=== PATIENT | male | born 1975 | race Asian ===

== ENCOUNTER 2020-08-10 09:09 | Outpatient (REF) | payer OTHER, SELFPAY ==
[2020-08-10 11:18] LABS: MANUAL DIFF FLAG NO
[2020-08-10 11:28] LABS: Basophils Percent Auto 0.3 % (0-2); Eosinophils Absolute Auto 0.3 X10*3/uL (0.0-0.4); Eosinophils Percent Auto 4.3 % (0-4); Hematocrit 41.6 % (42-52); Imm Gran Abs Auto 0.01 X10*3/uL (0.00-0.03); Imm Gran Pct Auto 0.1 % (0.0-0.4); Lymphocytes Absolute Auto 1.7 X10*3/uL (1.2-4.9); Lymphocytes Percent Auto 25.3 % (20-40); Mean Corpuscular HGB Conc 31.3 g/dl (31.0-36.0); Mean Corpuscular Volume 96.1 fL (80-98); Mean Platelet Volume 11.4 fL (9.4-12.4); Monocytes Absolute Auto 0.8 X10*3/uL (0.1-1.2); Monocytes Percent Auto 12.2 % (2-11); Neutrophils Absolute Auto 3.9 X10*3/uL (2.0-8.3); Neutrophils Percent Auto 57.8 % (45-73); Platelet Count 207 X10*3/uL (160-400); Red Blood Count 4.33 X10*6/uL (4.60-5.80); Red Cell Distribution Width 12.2 % (11.0-16.0); White Blood Count 6.8 X10*3/uL (4.8-10.8)
[2020-08-10 11:54] LABS: Anion Gap 12 (12-20); Blood Urea Nitrogen 14 mg/dL (9-16); Calcium 8.7 mg/dL (8.4-10.2); Carbon Dioxide 25 mmol/L (22-29); Chloride 108 mmol/L (96-108); Cholesterol 127 mg/dL; Estimated Glomerular Filt Rate > 60; Glucose Fasting 86 mg/dL (60-99); HDL Cholesterol 33 mg/dL; Iron 102 mcg/dL (45-160); LDL Cholesterol Calculated 82 mg/dl; Percent Iron Saturation 32 % (15-50); Potassium 4.2 mmol/l (3.3-5.1); Sodium 141 mmol/L (135-145); Total Iron Binding Capacity 321 mcg/dL (228-428); Triglycerides 63 mg/dL; Unsaturated Iron Binding 219 ug/dL
[2020-08-10 12:19] LABS: Ferritin 218 ng/mL (20-250)
== END 2020-08-10 09:10 | disposition home or self-care (01) ==
LOC: HO.HMGCLDS 09:09
PROVIDERS: PCP Internal Medicine; Visit Provider Internal Medicine
DX: D64.9 Anemia, unspecified (principal); Z00.01 Encounter for general adult medical examination with abnormal findings; I10 Essential (primary) hypertension; D50.9 Iron deficiency anemia, unspecified; R43.0 Anosmia
CPT/HCPCS: 36415; 80048; 80061; 82728; 83540; 85025; U0003

== ENCOUNTER 2021-01-09 09:38 | Outpatient (REF) | payer OTHER, SELFPAY ==
[2021-01-09 11:22] LABS: MANUAL DIFF FLAG NO
[2021-01-09 11:31] LABS: Basophils Percent Auto 0.3 % (0-2); Eosinophils Absolute Auto 0.2 X10*3/uL (0.0-0.4); Eosinophils Percent Auto 3.6 % (0-4); Hematocrit 43.1 % (42-52); Hemoglobin 13.6 g/dl (14.0-18.0); Imm Gran Abs Auto 0.01 X10*3/uL (0.00-0.03); Imm Gran Pct Auto 0.2 % (0.0-0.4); Lymphocytes Absolute Auto 1.6 X10*3/uL (1.2-4.9); Lymphocytes Percent Auto 25.6 % (20-40); Mean Corpuscular HGB Conc 31.6 g/dl (31.0-36.0); Mean Corpuscular Volume 95.1 fL (80-98); Mean Platelet Volume 10.7 fL (9.4-12.4); Monocytes Absolute Auto 0.6 X10*3/uL (0.1-1.2); Monocytes Percent Auto 9.7 % (2-11); Neutrophils Absolute Auto 3.7 X10*3/uL (2.0-8.3); Neutrophils Percent Auto 60.6 % (45-73); Platelet Count 287 X10*3/uL (160-400); Red Blood Count 4.53 X10*6/uL (4.60-5.80); Red Cell Distribution Width 12.1 % (11.0-16.0); White Blood Count 6.1 X10*3/uL (4.8-10.8)
[2021-01-09 12:04] LABS: Alanine Aminotransferase 16 U/L (0-40); Albumin Level 4.2 g/dL (3.5-5.0); Alkaline Phosphatase 86 U/L (39-117); Anion Gap 13 (12-20); Aspartate Amino Transferase 15 U/L (5-37); Blood Urea Nitrogen 14 mg/dL (9-16); Carbon Dioxide 23 mmol/L (22-29); Chloride 108 mmol/L (96-108); Estimated Glomerular Filt Rate > 60; Glucose Random 102 mg/dL (60-115); Potassium 4.3 mmol/L (3.3-5.1); Sodium 140 mmol/L (135-145); Total Protein 7.9 g/dL (6.5-8.0)
== END 2021-01-09 09:39 | disposition home or self-care (01) ==
LOC: HO.HMGCLDS 09:38
PROVIDERS: PCP Internal Medicine; Visit Provider Nurse Practitioner Family
DX: R10.9 Unspecified abdominal pain (principal)
CPT/HCPCS: 36415; 80053; 85025

== ENCOUNTER 2021-02-01 09:22 | Outpatient (REF) | payer OTHER, SELFPAY ==
--- NOTE | ~2021-02-01 | US_ITS ---
EXAMINATION: US ABDOMEN COMPLETE CLINICAL INFORMATION: Right upper quadrant pain. COMPARISON: CT abdomen without intravenous contrast dated 10/26/2007. TECHNIQUE: Real-time imaging of the abdominal viscera. FINDINGS: PANCREAS: Not visualized due to bowel gas. ABDOMINAL AORTA: The proximal, mid, and distal segments are normal in caliber. INFERIOR VENA CAVA: Visualized portions are normal. LIVER: Liver echotexture is increased and heterogeneous. The liver is normal in size. The liver contour is normal. No focal hepatic lesion. There is no intrahepatic biliary duct dilatation seen. GALLBLADDER: Normal. The gallbladder is physiologically distended without evidence of stones, sludge, polyps, wall thickening or pericholecystic fluid. COMMON BILE DUCT: Normal in caliber measuring 0.3 cm in diameter. RIGHT KIDNEY: Normal. No hydronephrosis. No renal calculi or focal parenchymal lesions. The kidney measures 11.1 cm in maximum dimension. LEFT KIDNEY: There is a 3 mm stone in the lower pole. No hydronephrosis or focal parenchymal lesions. The kidney measures 11.1 cm in maximum dimension. SPLEEN: Normal. The spleen measures 8.7 cm in maximum dimension. FREE FLUID: None. US/US abdomen complete IMPRESSION: Increased heterogeneous liver echotexture probably representing fatty infiltration. Small left renal stone. Nonvisualization of the pancreas.
== END 2021-02-01 09:23 | disposition home or self-care (01) ==
LOC: HO.US 09:22
PROVIDERS: PCP Internal Medicine; Visit Provider Internal Medicine
DX: R10.11 Right upper quadrant pain (principal)
CPT/HCPCS: 76700

== ENCOUNTER 2021-05-24 14:06 | Outpatient (REF) | payer OTHER, SELFPAY ==
--- NOTE | ~2021-05-24 | XR_ITS ---
EXAMINATION: XR RIBS, RIGHT CLINICAL INFORMATION: Pleura dynamic COMPARISON: None TECHNIQUE: 3 views of the right ribs were obtained. One view chest. FINDINGS: Lungs are clear. No consolidation, pneumothorax, or pleural effusion. The cardiomediastinal silhouette and pulmonary vasculature are normal. No bony abnormality seen. Multiple views of right ribs reveal no visible fracture or bony abnormality. A marker has been placed along the right lower posterior ribs with no visible fracture seen XR/XR ribs RT min 3V w CXR1V IMPRESSION: Unremarkable chest exam. Unremarkable right rib series.
== END 2021-05-24 14:07 | disposition home or self-care (01) ==
LOC: HO.HMGCX 14:06
PROVIDERS: PCP Internal Medicine; Visit Provider Internal Medicine
DX: Z13.89 Encounter for screening for other disorder (principal)
CPT/HCPCS: 71101

== ENCOUNTER 2021-08-11 09:12 | Outpatient (REF) | payer OTHER, SELFPAY ==
[2021-08-11 11:36] LABS: MANUAL DIFF FLAG NO
[2021-08-11 11:42] LABS: Basophils Percent Auto 0.2 % (0-2); Eosinophils Absolute Auto 0.2 X10*3/uL (0.0-0.4); Hematocrit 42.2 % (42.0-52.0); Hemoglobin 13.1 g/dl (14.0-18.0); Imm Gran Abs Auto 0.02 X10*3/uL (0.00-0.03); Imm Gran Pct Auto 0.3 % (0.0-0.4); Lymphocytes Absolute Auto 1.4 X10*3/uL (1.2-4.9); Lymphocytes Percent Auto 23.4 % (20-40); Mean Corpuscular Hemoglobin 30.3 pg (27.0-33.0); Mean Corpuscular Volume 97.5 fL (80.0-98.0); Monocytes Absolute Auto 0.7 X10*3/uL (0.1-1.2); Monocytes Percent Auto 11.8 % (2-11); Neutrophils Absolute Auto 3.5 x10*3/uL (2.0-8.3); Neutrophils Percent Auto 60.3 % (45-73); Platelet Count 270 X10*3/uL (160-400); Red Blood Count 4.33 X10*6/uL (4.60-5.80); Red Cell Distribution Width 11.9 % (11.0-16.0); White Blood Count 5.8 X10*3/uL (4.8-10.8)
[2021-08-11 12:08] LABS: Alanine Aminotransferase 15 U/L (0-40); Alkaline Phosphatase 98 U/L (39-117); Anion Gap 10 (12-20); Aspartate Amino Transferase 15 U/L (5-37); Bilirubin Total 1.3 mg/dL (0.0-1.0); Blood Urea Nitrogen 17 mg/dL (9-16); Calcium 9.2 mg/dL (8.4-10.2); Carbon Dioxide 26 mmol/L (22-29); Chloride 105 mmol/L (96-108); Cholesterol 127 mg/dL; Estimated Glomerular Filt Rate > 60; Glucose Fasting 81 mg/dL (60-99); HDL Cholesterol 34 mg/dL; Iron 92 mcg/dL (45-160); LDL Cholesterol Calculated 77 mg/dl; Percent Iron Saturation 28 % (15-50); Potassium 4.4 mmol/L (3.3-5.1); Sodium 137 mmol/L (135-145); Total Iron Binding Capacity 327 mcg/dL (228-428); Total Protein 7.5 g/dL (6.5-8.0); Triglycerides 84 mg/dL; Unsaturated Iron Binding 235 ug/dL
== END 2021-08-11 09:13 | disposition home or self-care (01) ==
LOC: HO.HMGCLDS 09:12
PROVIDERS: PCP Internal Medicine; Visit Provider Internal Medicine
DX: Z00.01 Encounter for general adult medical examination with abnormal findings (principal); R10.11 Right upper quadrant pain; D64.9 Anemia, unspecified
CPT/HCPCS: 36415; 80053; 80061; 83540; 85025

== ENCOUNTER 2021-09-21 08:02 | Outpatient (REF) | payer OTHER, SELFPAY ==
[2021-09-21 09:23] LABS: MANUAL DIFF FLAG NO
[2021-09-21 09:50] LABS: Basophils Percent Auto 0.3 % (0-2); Eosinophils Absolute Auto 0.2 X10*3/uL (0.0-0.4); Eosinophils Percent Auto 3.6 % (0-4); Hematocrit 42.7 % (42.0-52.0); Hemoglobin 13.5 g/dl (14.0-18.0); Imm Gran Abs Auto 0.01 X10*3/uL (0.00-0.03); Imm Gran Pct Auto 0.2 % (0.0-0.4); Lymphocytes Absolute Auto 1.4 X10*3/uL (1.2-4.9); Lymphocytes Percent Auto 24.4 % (20-40); Mean Corpuscular HGB Conc 31.6 g/dl (31.0-36.0); Mean Corpuscular Hemoglobin 30.4 pg (27.0-33.0); Mean Corpuscular Volume 96.2 fL (80.0-98.0); Mean Platelet Volume 10.1 fL (9.4-12.4); Monocytes Absolute Auto 0.6 X10*3/uL (0.1-1.2); Monocytes Percent Auto 10.3 % (2-11); Neutrophils Absolute Auto 3.6 x10*3/uL (2.0-8.3); Neutrophils Percent Auto 61.2 % (45-73); Platelet Count 251 X10*3/uL (160-400); Red Blood Count 4.44 X10*6/uL (4.60-5.80); Red Cell Distribution Width 11.7 % (11.0-16.0); White Blood Count 5.8 X10*3/uL (4.8-10.8)
[2021-09-21 10:30] LABS: Alanine Aminotransferase 17 U/L (0-40); Alkaline Phosphatase 90 U/L (39-117); Anion Gap 11 (12-20); Aspartate Amino Transferase 14 U/L (5-37); Bilirubin Direct 0.5 mg/dL (0.0-0.5); Bilirubin Total 1.2 mg/dL (0.0-1.0); Blood Urea Nitrogen 12 mg/dL (9-16); Calcium 9.3 mg/dL (8.4-10.2); Carbon Dioxide 25 mmol/L (22-29); Chloride 108 mmol/L (96-108); Estimated Glomerular Filt Rate > 60; Gamma Glutamyl Transpeptidase 23 U/L (11-51); Glucose Random 87 mg/dL (60-115); Potassium 4.2 mmol/L (3.3-5.1); Sodium 140 mmol/L (135-145); Total Protein 7.6 g/dL (6.5-8.0)
[2021-09-21 10:49] LABS: HBS Num1 27.76 mIU/mL (0-7.99); HBsAGNum1 0.26 S/CO (0.00-0.99); Hepatitis A Antibody IgM 0.49 Index (0-0.79); Hepatitis B Surface Antigen Negative (Negative); ~Hepatitis A Antibody IgM Nonreactive (Nonreactive); ~Hepatitis B Surface Antibody REACTIVE (Nonreactive)
[2021-09-21 10:50] LABS: HIV AB/AG Nonreactive (Nonreactive); HIV Num 1 0.05 S/CO (0.00-0.99); ~HepC Num1 0.12 S/CO (0.00-0.79); ~Hepatitis C Antibody Nonreactive (Nonreactive)
[2021-09-21 10:53] LABS: Ferritin 169 ng/mL (20-250)
[2021-09-21 12:25] LABS: HBc Num3 8.54 S/CO; Hepatitis B Core Antibody Reactive (Nonreactive)
[2021-09-24 22:55] LABS: Anti Nuclear Antibody Pattern Nuclear, Homogeneous; Anti Nuclear Antibody Screen POSITIVE (NEGATIVE); Anti Nuclear Antibody Titer 1:40 titer
[2021-09-26 15:55] LABS: Mitochondrial Antibodies NEGATIVE (NEGATIVE)
[2021-09-26 23:11] LABS: Smooth Muscle Antibody <20 U (<20)
== END 2021-09-21 08:03 | disposition home or self-care (01) ==
LOC: HO.LAB 08:02
PROVIDERS: PCP Internal Medicine; Referring Provider Internal Medicine; Visit Provider Nurse Practitioner
DX: R79.89 Other specified abnormal findings of blood chemistry (principal); Z12.11 Encounter for screening for malignant neoplasm of colon
CPT/HCPCS: 36415; 80053; 82105; 82248; 82728; 82977; 85025; 86015; 86038; 86039; 86255; 86256; 86704; 86706; 86709; 86803; 87340; 87389; 99202

== ENCOUNTER 2022-01-29 11:17 | Day surgery (SDC) | payer OTHER, SELFPAY ==
[2022-01-23 15:30] VITALS: BMI 23.6
--- NOTE | 2022-01-28 11:00 | P.CONAN_ITS ---
Documented by User: Alisa Ochoa NP 02/05/22 13:42 HPI - Anesthesia Eval Consult details Narrative: 46yo M for Colonoscopy [facility] Active Problems Active Problems: All Active Problems (Updated 01/23/22 @ 15:27 by Janis Cobb RN) Eczematous dermatitis (Acute) Encounter for screening for malignant neoplasm of colon (Acute) Elevated LFTs (Acute) Seasonal allergic rhinitis (Acute) Deviated nasal septum (Acute) Anosmia (Acute) Anemia (Acute) Kidney stones (Acute) Past Medical History Medical History Acute dermatitis Anemia Anosmia COVID-19 vaccine series completed Deviated nasal septum Fatty liver Kidney stones Right upper quadrant abdominal pain Seasonal allergic rhinitis Family History Family History Father Diabetes mellitus Mother Kidney failure Sister No problems noted. Sister No problems noted. Sister No problems noted. Son No problems noted. Daughter No problems noted. Daughter No problems noted. Brother No problems noted. Brother No problems noted. Brother No problems noted. Brother No problems noted. Brother No problems noted. Surgical History Surgical History Nasal fracture Social History Social History Housing: House Alcohol intake: never Patient Tobacco Use Status: Never used Tobacco Current occupational status: employed Meds Allergies Allergy/AdvReac Type Severity Reaction Status Date / Time No Known Allergies [NKA] Allergy Unknown UNKNOWN Verified 01/29/22 12:02 Exam Exam Date and Time: January 28, 2022 1100 Height,Weight and Vital Signs: Height 5 ft 8 in Weight 70.477 kg Assessment and Plan Assessment Anesthesia Assessment: Chart Reviewed Documented by User: Riccardo Ruiz MD 02/05/22 14:47 [facility] Past Medical History Medical History Acute dermatitis Anemia Anosmia COVID-19 vaccine series completed Deviated nasal septum Fatty liver Kidney stones Right upper quadrant abdominal pain Seasonal allergic rhinitis Family History Family History Father Diabetes mellitus Mother Kidney failure Sister No problems noted. Sister No problems noted. Sister No problems noted. Son No problems noted. Daughter No problems noted. Daughter No problems noted. Brother No problems noted. Brother No problems noted. Brother No problems noted. Brother No problems noted. Brother No problems noted. Family history of problems with anesthesia: No Surgical History Surgical History Nasal fracture History of Problems with Anesthesia: No Social History Social History Housing: House Alcohol intake: never Patient Tobacco Use Status: Never used Tobacco Current occupational status: employed Meds Allergies Allergy/AdvReac Type Severity Reaction Status Date / Time No Known Allergies [NKA] Allergy Unknown UNKNOWN Verified 01/29/22 12:02 Exam Airway Mallampati Class: I TM Dist: >3cm Neck ROM: Full Assessment and Plan Assessment Anesthesia Assessment: Anesthesia Plan Discussed Final Anesthetic Review Family History of Problems with Anesthesia: No History of Problems with Anesthesia: No NPO: Yes ASA Class: II Final Preanesthetic Review: No Changes in Pt Med Stat, Meds/Allgs Chart Reviewed, Consent Obtained/Reviewed and Anes Risks/Benef Reviewed Patient Risk: Low Procedure Risk: Low Anesthetic Plan Anesthetic Plan: MAC: Disposition: Standard PACU
[2022-01-29 11:48] VITALS: BP 142/84; PULSE 63; RESP 15; TEMP 36.3; O2SAT 99
[2022-01-29] MEDS: Lactated Ringers 1,000 ML 100 ML IVCONT (12:02)
--- NOTE | 2022-01-29 12:14 | MHC.SHP ---
Pre-Procedural Eval Section A Date of Service: 01/29/22 Section B Chief Complaint: screening Relevant Family History (Specify if Yes): No Relevant Social History: None Medical History: Significant History (Acute dermatitis Anemia Anosmia COVID-19 vaccine series completed Deviated nasal septum Kidney stones Right upper quadrant abdominal pain Seasonal allergic rhinitis) History of Previous Operations: Relevant previous surgery/procedure and date(s) (Nasal fracture) Allergies: Allergies Allergy/AdvReac Type Severity Reaction Status Date / Time No Known Allergies [NKA] Allergy Unknown UNKNOWN Verified 01/29/22 12:02 Review of Systems Sugical H&P ROS: Negative: Constitution, Cardiovascular, Respiratory, Neurological, Psychiatric, Hem-Onc, Allergic/Immunologic, Gastrointestinal, Genitourinary, Musculoskeletal, Integumentary, Endocrine and Eyes/Ears/Nose/Throat Exam Surgical H&P Exam: Normal: HEENT, Normal: Heart, Normal: Lungs, Normal: Extremities, Normal: Abdomen, Normal: Skin and Normal: Neurological Plan Diagnosis/Plan: Unchanged I have reviewed the history and physical and performed a pertinent physical examination on my patient. No changes have occurred unless specified.
--- NOTE | 2022-01-29 12:22 | P.OP_ITS ---
Operative Note Operative Note Date of Service: 01/29/22 Narrative: Operative Information Procedure Description: Colonoscopy Indication: screening colonoscopy Anesthesia: MAC COLONOSCOPY Instrument: Olympus variable stiffness ADULT scope 190L Colonoscopy Monitoring: Vital signs and clinical assessment, continuous EKG monitoring, Pulse oximetry, Carbon Dioxide monitoring and blood pressure monitoring were done throughout the procedure. Colon withdrawal time was 8 minutes. Procedure: The patient was placed in the left lateral decubitis position and pre-procedure medications were administered. After a digital rectal examination of the ano-rectum, the video colonoscope was inserted into the rectum and advanced through the colon to the cecum/TI. The colonoscope was slowly withdrawn in a retrograde panoramic fashion and the colon mucosa was carefully examined including a retroflexed view of the rectum. Findings and interventions are described below. Procedure Difficulty: easy Findings: Terminal Ileum-normal Cecum:normal Ascending Colon: normal Transverse Colon -normal Descending Colon:normal Sigmoid Colon: normal Rectum: Retroflexion with medium sized internal hemorrhoids, grade I Anorectum - normal Colon preparation: [place] Bowel Preparation Scale Right colon; 3 Transverse colon: 3 Left colon; 3 (0 = Unprepared colon segment with mucosa not seen due to solid stool that cannot be cleared. 1 = Portion of mucosa of the colon segment seen, but other areas of the colon segment not well seen due to staining, residual stool and/or opaque liquid. 2 = Minor amount of residual staining, small fragments of stool and/or opaque liquid, but mucosa of colon segment seen well. 3 = Entire mucosa of colon segment seen well with no residual staining, small fragments of stool or opaque liquid) Impression and Post Procedure Diagnosis: internal hemorrhoids Plan: High fiber diet leaflet Avoid straining at stool, epsom salts and sitz bath, anusol supps or cream Repeat Colonoscopy in 10 years or earlier if clinically indicated Above findings were reviewed with the patient and relevant handouts were provided if indicated.
--- NOTE | 2022-01-29 12:22 | PM.OP ---
Brief Operative Note Date of Service: 01/29/22 Pre-op diagnosis: screening colonoscopy Post-op diagnosis: same Procedure: see op note Surgeon: Carolina Londono MD Anesthesia: MAC Was an Clean Out Driller Helper used for this Procedure?: No Estimated blood loss (mL): 0 Condition: stable Disposition: PACU
[2022-01-29 12:55] VITALS: BP 100/53; PULSE 61; TEMP 36.5; O2SAT 97
[2022-01-29 13:12] VITALS: BP 100/56; PULSE 60; RESP 16; TEMP 36.5; O2SAT 99
== END 2022-01-29 12:44 | disposition home or self-care (01) ==
PROVIDERS: PCP Internal Medicine; Visit Provider Internal Medicine Gastroenterology
PROC: 0DJD8ZZ Inspection of Lower Intestinal Tract, Via Natural or Artificial Opening Endoscopic (ICD-10-PCS; CPT 45378; principal; 2022-01-29 13:40)
DX: Z12.11 Encounter for screening for malignant neoplasm of colon (principal); K64.0 First degree hemorrhoids; R79.89 Other specified abnormal findings of blood chemistry; K76.0 Fatty (change of) liver, not elsewhere classified; D64.9 Anemia, unspecified; R43.0 Anosmia; N20.0 Calculus of kidney; L30.9 Dermatitis, unspecified; J30.9 Allergic rhinitis, unspecified
CPT/HCPCS: 45378

== ENCOUNTER → 2022-02-14 10:11 | Outpatient (BNVA) | payer OTHER, SELFPAY | PROVIDERS: PCP Internal Medicine; Visit Provider Nurse Practitioner | DX: Z12.11 Encounter for screening for malignant neoplasm of colon (principal); E80.4 Gilbert syndrome | CPT/HCPCS: 99212 ==

== ENCOUNTER 2022-04-02 11:53 | Outpatient (REF) | payer OTHER, SELFPAY ==
--- NOTE | ~2022-04-02 | XR_ITS ---
EXAMINATION: XR FOOT RIGHT XR FOOT LEFT CLINICAL INFORMATION: Pain of right foot. Left foot plantar fascial fibromatosis. COMPARISON: None TECHNIQUE: Left foot, 3 views Right foot, 3 views FINDINGS: Right foot: No acute findings. Bones have normal alignment and joint spaces are maintained. No erosions or periostitis. No fracture, subluxation or focal soft tissue swelling. There are enthesophytes of the posterior and plantar surfaces of the calcaneus. There is no dystrophic calcification along the plantar aponeurosis. No radiopaque foreign body. Left foot: No acute findings. Bones have normal alignment and joint spaces are maintained. No erosions or periostitis. No fracture, subluxation or focal soft tissue swelling. There are enthesophytes of the posterior and plantar surfaces of the calcaneus. There is no dystrophic calcification along the plantar aponeurosis. No radiopaque foreign body. XR/XR foot RT min 3V IMPRESSION: * Bilateral calcaneal enthesophytes are noted. * The soft tissues of both feet are grossly unremarkable. * No evidence of metatarsal stress fracture or arthritic disease in either foot.
--- NOTE | ~2022-04-02 | XR_ITS ---
EXAMINATION: XR FOOT RIGHT XR FOOT LEFT CLINICAL INFORMATION: Pain of right foot. Left foot plantar fascial fibromatosis. COMPARISON: None TECHNIQUE: Left foot, 3 views Right foot, 3 views FINDINGS: Right foot: No acute findings. Bones have normal alignment and joint spaces are maintained. No erosions or periostitis. No fracture, subluxation or focal soft tissue swelling. There are enthesophytes of the posterior and plantar surfaces of the calcaneus. There is no dystrophic calcification along the plantar aponeurosis. No radiopaque foreign body. Left foot: No acute findings. Bones have normal alignment and joint spaces are maintained. No erosions or periostitis. No fracture, subluxation or focal soft tissue swelling. There are enthesophytes of the posterior and plantar surfaces of the calcaneus. There is no dystrophic calcification along the plantar aponeurosis. No radiopaque foreign body. XR/XR foot LT min 3V IMPRESSION: * Bilateral calcaneal enthesophytes are noted. * The soft tissues of both feet are grossly unremarkable. * No evidence of metatarsal stress fracture or arthritic disease in either foot.
== END 2022-04-02 11:54 | disposition home or self-care (01) ==
LOC: HO.HMGCX 11:53
PROVIDERS: Visit Provider Physician Assistant
DX: M79.671 Pain in right foot (principal); M79.672 Pain in left foot; M72.2 Plantar fascial fibromatosis
CPT/HCPCS: 73630

== ENCOUNTER 2022-05-10 12:01 | Outpatient (REF) | payer OTHER, SELFPAY ==
[2022-05-10 13:58] LABS: Hematocrit 40.6 % (42.0-52.0); Hemoglobin 13.3 g/dl (14.0-18.0); Mean Corpuscular HGB Conc 32.8 g/dl (31.0-36.0); Mean Corpuscular Hemoglobin 30.6 pg (27.0-33.0); Mean Corpuscular Volume 93.3 fL (80.0-98.0); Mean Platelet Volume 10.1 fL (9.4-12.4); Platelet Count 247 X10*3/uL (160-400); Red Blood Count 4.35 X10*6/uL (4.60-5.80); Red Cell Distribution Width 12.3 % (11.0-16.0); White Blood Count 6.9 X10*3/uL (4.8-10.8)
[2022-05-10 14:16] LABS: Alanine Aminotransferase 18 U/L (0-40); Alkaline Phosphatase 85 U/L (39-117); Anion Gap 14 (12-20); Aspartate Amino Transferase 15 U/L (5-37); Bilirubin Direct 0.4 mg/dL (0.0-0.5); Bilirubin Total 1.2 mg/dL (0.0-1.0); Blood Urea Nitrogen 15 mg/dL (9-16); Calcium 9.3 mg/dL (8.4-10.2); Carbon Dioxide 25 mmol/L (22-29); Chloride 104 mmol/L (96-108); Estimated Average Glucose 82 mg/dL; Estimated Glomerular Filt Rate > 60; Glucose Random 89 mg/dL (60-115); Hemoglobin A1c % 4.5 %; Potassium 4.2 mmol/L (3.3-5.1); Sodium 139 mmol/L (135-145); Total Protein 7.6 g/dL (6.5-8.0)
[2022-05-10 14:38] LABS: Thyroid Stimulating Hormone 1.36 uIU/mL (0.32-4.0)
== END 2022-05-10 12:02 | disposition home or self-care (01) ==
LOC: HO.HMGCLDS 12:01
PROVIDERS: PCP Internal Medicine; Visit Provider Internal Medicine
DX: G62.9 Polyneuropathy, unspecified (principal)
CPT/HCPCS: 36415; 80048; 80076; 83036; 84443; 85027

== ENCOUNTER 2022-07-30 10:23 | Outpatient (REF) | payer OTHER, SELFPAY ==
[2022-07-30 11:45] LABS: MANUAL DIFF FLAG NO
[2022-07-30 12:04] LABS: Basophils Percent Auto 0.7 % (0-2); Eosinophils Absolute Auto 0.2 X10*3/uL (0.0-0.4); Eosinophils Percent Auto 4.1 % (0-4); Hemoglobin 14.1 g/dl (14.0-18.0); Imm Gran Abs Auto 0.01 X10*3/uL (0.00-0.03); Imm Gran Pct Auto 0.2 % (0.0-0.4); Lymphocytes Absolute Auto 1.5 X10*3/uL (1.2-4.9); Lymphocytes Percent Auto 26.1 % (20-40); Mean Corpuscular Hemoglobin 30.6 pg (27.0-33.0); Mean Corpuscular Volume 95.4 fL (80.0-98.0); Mean Platelet Volume 10.9 fL (9.4-12.4); Monocytes Absolute Auto 0.6 X10*3/uL (0.1-1.2); Monocytes Percent Auto 11.1 % (2-11); Neutrophils Absolute Auto 3.2 x10*3/uL (2.0-8.3); Neutrophils Percent Auto 57.8 % (45-73); Platelet Count 249 X10*3/uL (160-400); Red Blood Count 4.61 X10*6/uL (4.60-5.80); Red Cell Distribution Width 11.8 % (11.0-16.0); White Blood Count 5.6 X10*3/uL (4.8-10.8)
[2022-07-30 12:32] LABS: Erythrocyte Sedimentation Rate 12 MM/HR (0-15)
[2022-07-30 13:07] LABS: Anion Gap 14 (12-20); Blood Urea Nitrogen 13 mg/dL (9-16); Calcium 9.3 mg/dL (8.4-10.2); Carbon Dioxide 24 mmol/L (22-29); Chloride 107 mmol/L (96-108); Estimated Glomerular Filt Rate > 60; Glucose Random 85 mg/dL (60-115); Potassium 4.4 mmol/L (3.3-5.1); Sodium 141 mmol/L (135-145)
[2022-08-01 15:37] LABS: CRP High Sensitivity 2.2 mg/L
== END 2022-07-30 10:24 | disposition home or self-care (01) ==
LOC: HO.HMGCLDS 10:23
PROVIDERS: PCP Internal Medicine; Visit Provider Physician Assistant
DX: R42 Dizziness and giddiness (principal)
CPT/HCPCS: 36415; 80048; 85025; 85652; 86141

== ENCOUNTER 2022-08-12 10:35 | Outpatient (REF) | payer OTHER, SELFPAY ==
[2022-08-12 12:15] LABS: Alanine Aminotransferase 17 U/L (0-40); Albumin Level 4.1 g/dL (3.5-5.0); Alkaline Phosphatase 85 U/L (39-117); Aspartate Amino Transferase 13 U/L (5-37); Bilirubin Direct 0.4 mg/dL (0.0-0.5); Bilirubin Total 1.4 mg/dL (0.0-1.0); Cholesterol 137 mg/dL; HDL Cholesterol 35 mg/dL; LDL Cholesterol Calculated 86 mg/dl; Total Protein 7.5 g/dL (6.5-8.0); Triglycerides 80 mg/dL
== END 2022-08-12 10:36 | disposition home or self-care (01) ==
LOC: HO.HMGCLDS 10:35
PROVIDERS: PCP Internal Medicine; Visit Provider Internal Medicine
DX: Z00.01 Encounter for general adult medical examination with abnormal findings (principal); R17 Unspecified jaundice
CPT/HCPCS: 36415; 80061; 80076

== ENCOUNTER 2023-03-15 22:36 | Emergency (ER) | payer OTHER, SELFPAY ==
[2023-03-15 22:43] VITALS: BP 140/90; PULSE 81; RESP 18; TEMP 36.7; O2SAT 98; BMI 25.7
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
--- NOTE | 2023-03-16 00:17 | PC.NURSE ---
no apparent distress aox4
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
[2023-03-16 00:46] VITALS: BP 138/88; PULSE 70; RESP 18; TEMP 36.8; O2SAT 100
--- NOTE | 2023-03-16 00:58 | PC.NURSE ---
Discharge instructions given and explained to pt Ambulates safely/independently No apparent distress aox4 all of pt's questions answered
--- NOTE | 2023-03-16 00:58 | PC.NURSE ---
pt refused 600 mg ibuprofen states his provider does not want him to take ibuprofen d/t kidney issues
== END 2023-03-16 01:13 | disposition home or self-care (01) ==
PROVIDERS: Emergency Provider Internal Medicine; PCP Internal Medicine
DX: S39.012A Strain of muscle, fascia and tendon of lower back, initial encounter (principal); S16.1XXA Strain of muscle, fascia and tendon at neck level, initial encounter; V43.61XA Car passenger injured in collision with sport utility vehicle in traffic accident, initial encounter; Y93.89 Activity, other specified; Y92.414 Local residential or business street as the place of occurrence of the external cause; Y99.9 Unspecified external cause status
CPT/HCPCS: 99283; 99284

== ENCOUNTER 2023-03-21 10:59 | Outpatient (AMB) | payer OTHER, SELFPAY ==
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
[2023-03-21 11:03] VITALS: BP 120/80; PULSE 82; TEMP 36.5; O2SAT 98
== END 2023-03-21 12:18 | disposition home or self-care (01) ==
PROVIDERS: PCP Internal Medicine; Visit Provider Physician Assistant Medical
DX: M54.12 Radiculopathy, cervical region (principal); M54.16 Radiculopathy, lumbar region
CPT/HCPCS: 99213

== ENCOUNTER 2023-03-21 11:35 | Outpatient (REF) | payer OTHER, SELFPAY ==
[2023-03-21 15:20] LABS: Blood Urea Nitrogen 14 mg/dL (9-16); Estimated Glomerular Filt Rate > 60
== END 2023-03-21 11:36 | disposition home or self-care (01) ==
LOC: HO.HMGCLDS 11:35
PROVIDERS: PCP Internal Medicine; Visit Provider Physician Assistant Medical
DX: Z00.00 Encounter for general adult medical examination without abnormal findings (principal)
CPT/HCPCS: 36415; 82565; 84520

== ENCOUNTER 2023-03-24 10:28 | Outpatient (REF) | payer OTHER, SELFPAY ==
--- NOTE | ~2023-03-24 | XR_ITS ---
EXAMINATION: XR LUMBOSACRAL SPINE CLINICAL INFORMATION: Radiculopathy, lumbar region COMPARISON: None available. TECHNIQUE: Three views of the lumbosacral spine. FINDINGS: The vertebral bodies and posterior elements are normal. The disc spaces are preserved and the vertebral alignment is normal. The paraspinal soft tissues are normal. XR/XR lumbar spine 2-3V IMPRESSION: Unremarkable examination.
--- NOTE | ~2023-03-24 | XR_ITS ---
EXAMINATION: XR CERVICAL SPINE CLINICAL INFORMATION: Radiculopathy, cervical region COMPARISON: None available. TECHNIQUE: 3 views of the cervical spine were obtained. FINDINGS: Vertebral body heights are preserved. There is mild bony spurring in degenerative disc disease in the cervical spine is at C5-C6 and C6-C7. Lateral masses are symmetric. Prevertebral soft tissues are unremarkable. XR/XR cervical spine 3V IMPRESSION: Mild cervical spondylosis at C5-C6 and C6-C7.
== END 2023-03-24 10:29 | disposition home or self-care (01) ==
LOC: HO.XRAY 10:28
PROVIDERS: PCP Internal Medicine; Visit Provider Physician Assistant
DX: M54.12 Radiculopathy, cervical region (principal); M54.16 Radiculopathy, lumbar region
CPT/HCPCS: 72040; 72100

== ENCOUNTER 2023-04-16 10:29 | Outpatient (AMB) | payer OTHER, SELFPAY ==
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
[2023-04-16 10:45] VITALS: BP 112/70; PULSE 69; O2SAT 98; BMI 26.1
== END 2023-04-16 11:09 | disposition home or self-care (01) ==
PROVIDERS: PCP Internal Medicine; Visit Provider Internal Medicine
DX: M54.2 Cervicalgia (principal)
CPT/HCPCS: 99213

== ENCOUNTER 2023-05-21 11:00 | Outpatient (RCR) | payer OTHER, SELFPAY ==
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
--- NOTE | 2023-05-21 11:55 | MHC.PT.DC ---
[facility] [place] Office [place] Office [place] Office [address] Manuel Mendoza [address] [phone] F: [phone] F: [phone] F: [phone] F: [phone] Physical Therapy Discharge Report Diagnosis: cervical radiculopathy, lumbar radiculopathy Date of Surgery: n/a Date of Evaluation: 04/10/23 Date of Discharge: 05/21/23 Treatments to Date: 9 Cancellations to Date: 2 No Shows to Date: 0 Discharge Status: Improved Function Independent with HEP Discharge Summary: 05/21/2023: Pt is reporting feeling better overall since start of care. His pain levels are much lower than when he started. He states he is compliant with his HEP. Encouraged him to continue with this to continue making gains. His lower back is also feeling better. At this point max benefits of PT have been provided and skilled PT is no longer indicated at this time. Pt to be d/c and is in agreement with this. He understands to follow up if his pain is not getting better with continuing his program for a few months. Electronically signed by: Khloe Cadet, PT, DPT, ATC Please sign and return to therapist. Thank you for your referral.
== END 2023-05-21 11:55 | disposition home or self-care (01) ==
LOC: HO.PTCHIC 11:00
PROVIDERS: PCP Internal Medicine; Visit Provider Internal Medicine
DX: M54.12 Radiculopathy, cervical region (principal); M54.16 Radiculopathy, lumbar region
CPT/HCPCS: 97110; 97140; 97161

== ENCOUNTER 2023-07-23 10:37 | Outpatient (AMB) | payer OTHER, SELFPAY ==
[2023-07-23 11:06] VITALS: BP 126/78; PULSE 78; O2SAT 99; BMI 25.8
--- NOTE | 2023-07-23 11:06 | A.OFFPC_ITS ---
Vital Signs 07/23/23 11:06 Height 5 ft 8 in Weight 169 lb 6 oz BMI 25.8 BP 126/78 Blood Pressure Location Lt brachial Position Sitting Pulse 78 Pulse Source Pulse Oximeter Pulse Oximetry (%) 99 Oxygen Delivery Method Room Air Intake Visit Reasons: R foot pain Intake Note: pt is here for pain in his right foot that he has had for a month he denies injury pt says he feels burning to pt says he is using an ointment from [facility] but dose not know the name of it Allergies No Known Allergies [NKA] Allergy (Unknown, Verified 07/23/23 11:25) UNKNOWN Medication List - Last Reconciled 07/23/23 by Lanny Rivers MD No Known Home Meds Tobacco use date assessed: 04/16/23 HPI R foot pain HPI Details 28-year-old male, here today complaining of progressive pain in the plantar aspect of his right foot, which has been present now for the last several weeks. He states that pain is present 1st thing in the morning when he takes his 1st step out of bed.. He has been taking [id number] Tylenol, and has been massaging his foot, which affords no improvement. He is here today requesting a referral to a foot doctor COUNT INCLUDES [facility] Medical History (Updated 08/04/23 @ 02:58 by Lanny Rivers MD) Pain, foot, chronic Cervicalgia Recurrent headache Intermittent lightheadedness Fatty liver COVID-19 vaccine series completed Right upper quadrant abdominal pain Seasonal allergic rhinitis Deviated nasal septum Anosmia Anemia Acute dermatitis Kidney stones Surgical History Nasal fracture Family History Father Diabetes mellitus Mother Kidney failure Sister No problems noted. Sister No problems noted. Sister No problems noted. Son No problems noted. Daughter No problems noted. Daughter No problems noted. Brother No problems noted. Brother No problems noted. Brother No problems noted. Brother No problems noted. Brother No problems noted. Housing: House Alcohol intake: never Patient Tobacco Use Status: Never used Tobacco e-Cigarette/Vaping Use: Never Used Current occupational status: employed Cognitive needs: No Hearing needs: No Vision needs: Yes Questionnaire PHQ-9 Over the last 2 weeks, how often have you been bothered by any of the following problems? Depression Screening Interpretation: Negative Depression Screening Done: Yes Source: Developed by Drs. Dae King, Enid Peña, Andre Murphy and colleagues, with an educational magan from [employer]. Thrive Questionnaire Date Thrive assessed: 04/16/23 SALINA-7 AMB Questionnaire SALINA-7 Date SALINA - 7 assessed: 04/16/23 Source: Developed by Drs. Dae King, Enid Peña, Andre Murphy and colleagues, with an educational magan from [employer]. Review of Systems Const All systems reviewed & are unremarkable except as noted in HPI and below Neuro Denies Sensory deficit (Neuro) Physical exam (Primary Care) Vital Signs: Last Vital Signs Pulse 78 07/23/23 11:06 BP 126/78 07/23/23 11:06 Pulse Ox 99 07/23/23 11:06 Oxygen Delivery Method Room Air 07/23/23 11:06 BMI result Body Mass Index 25.8 Tobacco/Smoking Status: Tobacco use Status Tobacco use date assessed 04/16/23 07/23/23 11:09 Patient Tobacco Use Status Never used Tobacco 07/23/23 11:09 e-Cigarette/Vaping Use Never Used 07/23/23 11:09 Depression Screening Interpretation: Negative Thrive Assessment: Date of Thrive Assessment Date Thrive assessed 04/16/23 07/23/23 11:09 Const General: no acute distress and alert Orientation/consciousness: patient oriented x3 Neck Neck: Yes full ROM and Yes no lymphadenopathy Resp Effort & Inspection: normal respiratory effort and able to speak in complete sentences Auscultation: clear to auscultation bilaterally Cardio Jugular venous distension: no JVD Rate: regular rate Rhythm: regular rhythm Heart sounds: S1 normal heart sound present and S2 normal heart sound present GI Inspection: Yes normal to inspection Palpation (GI): Soft to palpation Auscultation: normal bowel sounds Skin General skin exam: no rashes or lesions noted Neuro General: patient oriented x3, gait normal, moves all extremities, no focal motor deficits and CN's II-XI intact bilaterally Gait exam (Neuro): Normal gait present Motor exam (neuro): 5/5 motor strength present throughout Sensory Exam: No Sensory deficit (Neuro) Extrem General: Yes normal to inspection, Yes full ROM, Yes no pedal edema and Yes normal gait Right lower extremity: no joint enlargement and foot Details: tenderness (Plantar aspect and heel) Assessment and Plan Assessment & Plan (1) Pain, foot, chronic: Code(s): M79.673 - Pain in unspecified foot; G89.29 - Other chronic pain Qualifiers: Laterality: right Qualified Code(s): M79.671 - Pain in right foot; G89.29 - Other chronic pain Plan: Symptoms most likely due to plantar fascitis, instructed on several exercises to do at home , advised to wear comfortable shoes with good heel support. Referral to podiatry ordered as per patient's request. Orders: Referrals Podiatry Referral M79.673 - Pain in unspecified foot, G89.29 - Other chronic pain Coding Level of Care Code Est Pt Level 3 (98560) Diagnoses Chronic pain in right foot M79.671; G89.29 Laterality: right
== END 2023-07-23 11:35 | disposition home or self-care (01) ==
PROVIDERS: PCP Internal Medicine; Visit Provider Internal Medicine
DX: M79.671 Pain in right foot (principal); G89.29 Other chronic pain
CPT/HCPCS: 99213

== ENCOUNTER 2023-08-14 09:57 | Outpatient (AMB) | payer OTHER, SELFPAY ==
--- NOTE | 2023-08-14 10:05 | A.OFFPC_ITS ---
Vital Signs 08/14/23 10:06 Height 5 ft 8 in Weight 170 lb 4 oz BMI 25.9 BP 118/72 Blood Pressure Location Rt brachial Position Sitting Pulse 72 Pulse Source Pulse Oximeter Pulse Oximetry (%) 99 Oxygen Delivery Method Room Air Intake Visit Reasons: Annual PE Intake Note: Pt is here for his Annual PE Allergies No Known Allergies [NKA] Allergy (Unknown, Verified 08/14/23 10:52) UNKNOWN Medication List - Last Reconciled 08/14/23 by Lanny Rivers MD No Known Home Meds Tobacco use date assessed: 08/14/23 Dental Screening Dental Screen Date: 08/14/23 Did you have a dental visit in the last 12 months?: Yes Did you have a dental problem in the last 6 months where you did not have access to dental care?: No Was dental information given to patient?: Patient has dentist HPI Annual PE HPI Details 48-year-old male here today for his phy sical exam. On review of his vaccination record, he is overdue to get his COVID booster, patient does not want to get it, and has not yet had his flu vaccine for this year. Up-to-date with his Tdap. He had screening colonoscopy done in January of [address] Londono, showing normal findings, repeat in 10 years. He was referred to a product safety consultant in [place] on last visit, due to possible plantar fascitis. Patient has been complaining of bilateral heel pain and plantar pain when he takes his 1st step in the morning. He however received a letter from them saying that they do not take his insurance and now has to find another product safety consultant. He was recently seen by Neurology for possible migraine headaches and was advised to just take [id number] Excedrin migraine. Has been doing this which has been helping. [facility] Medical History (Updated 10/06/23 @ 02:21 by Lanny Rivers MD) Migraine without aura Pain, foot, chronic Cervicalgia Recurrent headache Intermittent lightheadedness Fatty liver COVID-19 vaccine series completed Right upper quadrant abdominal pain Seasonal allergic rhinitis Deviated nasal septum Anosmia Anemia Acute dermatitis Kidney stones Surgical History Nasal fracture Family History Father Diabetes mellitus Mother Kidney failure Sister No problems noted. Sister No problems noted. Sister No problems noted. Son No problems noted. Daughter No problems noted. Daughter No problems noted. Brother No problems noted. Brother No problems noted. Brother No problems noted. Brother No problems noted. Brother No problems noted. Social History Housing: House Alcohol intake: never Patient Tobacco Use Status: Never used Tobacco e-Cigarette/Vaping Use: Never Used Current occupational status: employed Cognitive needs: No Hearing needs: No Vision needs: Yes Questionnaire PHQ-9 Over the last 2 weeks, how often have you been bothered by any of the following problems? Depression Screening Interpretation: Negative Depression Screening Done: Yes Source: Developed by Drs. Dae King, Enid Peña, Andre Murphy and colleagues, with an educational magan from [employer]. Thrive Questionnaire Date Thrive assessed: 04/16/23 SALINA-7 AMB Questionnaire SALINA-7 Date SALINA - 7 assessed: 04/16/23 Source: Developed by Drs. Dae King, Enid Peña, Andre Murphy and colleagues, with an educational magan from [employer]. Review of Systems Const All systems reviewed & are unremarkable except as noted in HPI and below Denies chills and Denies fever(s) Eyes Reports no additional complaints ENT Reports no additional complaints and Reports Normal hearing present Card Reports no additional complaints, Denies chest pain and Denies dyspnea Resp Reports no additional complaints and Denies dyspnea GI Reports as per HPI and Denies fecal incontinence Reports as per HPI and Denies urinary incontinence Musc Reports as per HPI and Denies tingling Skin/Breast Denies rash Neuro Reports no additional complaints, Reports Normal hearing present, Denies lack of coordination, Denies focal weakness, Denies Sensory deficit (Neuro), Denies tingling and Denies paresthesias Psych Reports no additional complaints Endo Reports no additional complaints Oliver/Lymph Reports no additional complaints Aller/Immun Reports no additional complaints Physical exam (Primary Care) Vital Signs: Last Vital Signs Pulse 72 08/14/23 10:06 BP 118/72 08/14/23 10:06 Pulse Ox 99 08/14/23 10:06 Oxygen Delivery Method Room Air 08/14/23 10:06 BMI result Body Mass Index 25.9 Tobacco/Smoking Status: Tobacco use Status Tobacco use date assessed 08/14/23 08/14/23 10:13 Patient Tobacco Use Status Never used Tobacco 08/14/23 10:07 e-Cigarette/Vaping Use Never Used 08/14/23 10:07 Depression Screening Interpretation: Negative Thrive Assessment: Date of Thrive Assessment Date Thrive assessed 04/16/23 08/14/23 10:07 Const General: no acute distress and alert Orientation/consciousness: patient oriented x3 Eyes Other: Up-to-date with his eye exam goes to [facility] every 2 year, last done a year ago Neck Neck: Yes full ROM and Yes no lymphadenopathy Resp Effort & Inspection: normal respiratory effort and able to speak in complete sentences Auscultation: clear to auscultation bilaterally Cardio Jugular venous distension: no JVD Rate: regular rate Rhythm: regular rhythm Heart sounds: S1 normal heart sound present and S2 normal heart sound present GI Inspection: Yes normal to inspection Palpation (GI): Soft to palpation Auscultation: normal bowel sounds General: Yes no CVA tenderness Male General Exam: Yes normal external exam Back/Spine/Pelvis Back: no CVA tenderness Skin General skin exam: no rashes or lesions noted Neuro General: patient oriented x3, gait normal, moves all extremities, no focal motor deficits and CN's II-XI intact bilaterally Cranial nerves: Yes Normal hearing present Gait exam (Neuro): Normal gait present Motor exam (neuro): 5/5 motor strength present throughout Sensory Exam: No Sensory deficit (Neuro) Extrem General: Yes normal to inspection, Yes full ROM, Yes no pedal edema and Yes normal gait Right lower extremity: no joint enlargement and foot Details: tenderness (Plantar aspect and heel) Psych Appearance: grossly normal and well kempt Mental Status: mental status grossly normal Speech and movement: Normal speech and movement present Affect: normal affect Attitude: cooperative Thought process: Normal thought process present Thought content: Normal thought content present Office Procedures Flu Questionnaire Does the patient have a severe egg allergy?: No Does the patient have severe life threatening allergies?: No Does the patient have a fever or illness today?: No Has the patient ever had Guillain-Delmar Syndrome?: No Has the patient ever had any past reaction to a flu shot?: No Immunizations flu vacc [id number] 6mos up(PF) 60 mcg(15 mcgx4)/0.5 mL IM syringe Performing Provider: Lanny Rivers MD Performing Location: [facility] Administered by: Stefania Crandall CMA on 08/14/23 11:14 Dose Route Admin Location Dispensed Lot Number Expiration Date NDC Ur Coordinator 0.5 mL IM Left Deltoid 0.5 mL [id number] 03/07/24 62489-605-72 [employer] VIS Given Date VIS Provided VIS Publication Date 08/14/23 Single Vaccine 21 Eligibility Eligibility Date Funding Source Not [facility] Eligible 08/14/23 Private Assessment and Plan Assessment & Plan (1) Annual visit for general adult medical examination with abnormal findings: Code(s): Z00.01 - Encounter for general adult medical examination with abnormal findings Plan: Will check appropriate labs. Get regular dental visit every 6 months and regular eye exams, at least every 2 years. Take adequate calcium in diet and vitamin-D 3 at 2000 IU per cap once a day, in addition to weight-bearing exercises to help maintain good muscle tone and weight control. Instructed to self testicular exam to check for any mass. Flu vaccine given today. Up-to-date with his screening colonoscopy (2) Migraine without aura: Comment: Seen by Neurology, Dr. 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, Z00.01 - Encounter for general adult medical examination with abnormal findings, Z13.220 - Encounter for screening for lipoid disorders, Z13.1 - Encounter for screening for diabetes mellitus Lipid Panel 08/20/23 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, Z00.01 - Encounter for general adult medical examination with abnormal findings, Z13.220 - Encounter for screening for lipoid disorders, Z13.1 - Encounter for screening for diabetes mellitus Glucose Fasting 08/20/23 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, Z00.01 - Encounter for general adult medical examination with abnormal findings, Z13.220 - Encounter for screening for lipoid disorders, Z13.1 - Encounter for screening for diabetes mellitus Aspartate Amino Transferase 08/20/23 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, Z00.01 - Encounter for general adult medical examination with abnormal findings, Z13.220 - Encounter for screening for lipoid disorders, Z13.1 - Encounter for screening for diabetes mellitus Influenza [id number] Immunization 08/14/23 Z23 - Encounter for immunization Coding Level of Care Code Est Pt Prev Care 40-64y(35606) Diagnoses Annual visit for general adult medical examination with abnormal findings Z00.01 Migraine without aura and without status migrainosus, not intractable G43.009 Status migrainosus presence: without status migrainosus Intractability: not intractable [place] syndrome E80.4
[2023-08-14 10:06] VITALS: BP 118/72; PULSE 72; O2SAT 99; BMI 25.9
== END 2023-08-14 11:25 | disposition home or self-care (01) ==
PROVIDERS: PCP Internal Medicine; Visit Provider Internal Medicine
DX: Z23 Encounter for immunization (principal)
CPT/HCPCS: 90471; 90686; 99396

== ENCOUNTER 2023-08-20 08:11 | Outpatient (REF) | payer OTHER, SELFPAY ==
[2023-08-20 11:37] LABS: Alanine Aminotransferase 21 U/L (0-40); Aspartate Amino Transferase 19 U/L (5-37); Cholesterol 144 mg/dL (<200); Glucose Fasting 92 mg/dL (60-99); HDL Cholesterol 40 mg/dL (>40); LDL Cholesterol Calculated 86 mg/dL (<100); Triglycerides 94 mg/dL (<150)
== END 2023-08-20 08:12 | disposition home or self-care (01) ==
LOC: HO.HMGCLDS 08:11
PROVIDERS: PCP Internal Medicine; Visit Provider Internal Medicine
DX: Z00.01 Encounter for general adult medical examination with abnormal findings (principal); E80.4 Gilbert syndrome; Z13.220 Encounter for screening for lipoid disorders; Z13.1 Encounter for screening for diabetes mellitus
CPT/HCPCS: 36415; 80061; 82947; 84450; 84460

== ENCOUNTER 2024-08-17 09:33 | Outpatient (AMB) | payer OTHER, SELFPAY ==
[2024-08-17 10:11] VITALS: BP 100/70; PULSE 68; O2SAT 98; BMI 25.5
--- NOTE | 2024-08-17 10:11 | MHC.PC.OV ---
Vital Signs 08/17/24 10:11 Height 5 ft 8 in Weight 168 lb BMI 25.5 BP 100/70 Blood Pressure Location Rt brachial Position Sitting Pulse 68 Pulse Source Pulse Oximeter Pulse Oximetry (%) 98 Oxygen Delivery Method Room Air Intake Visit Reasons: Annual PE- see comments Intake Note: Pt is here today for his PE: Last colonoscopy 01/29/22 Allergies No Known Allergies [NKA] Allergy (Unknown, Verified 08/17/24 10:42) UNKNOWN Medication List - Last Reconciled 08/17/24 by Lanny Rivers MD No Known Home Meds Tobacco use date assessed: 08/17/24 Dental Screening Dental Screen Date: 08/17/24 Did you have a dental visit in the last 12 months?: Yes Did you have a dental problem in the last 6 months where you did not have access to dental care?: No Was dental information given to patient?: Patient has dentist [facility] Medical History (Updated 08/17/24 @ 10:51 by Lanny Rivers MD) Migraine without aura Pain, foot, chronic Cervicalgia Recurrent headache Intermittent lightheadedness Fatty liver COVID-19 vaccine series completed Right upper quadrant abdominal pain Seasonal allergic rhinitis Deviated nasal septum Anosmia Anemia Acute dermatitis Kidney stones Surgical History Nasal fracture Family History Father Diabetes mellitus Mother Kidney failure Sister No problems noted. Sister No problems noted. Sister No problems noted. Son No problems noted. Daughter No problems noted. Daughter No problems noted. Brother No problems noted. Brother No problems noted. Brother No problems noted. Brother No problems noted. Brother No problems noted. Social History Housing: House Alcohol intake: never Patient Tobacco Use Status: Never used Tobacco e-Cigarette/Vaping Use: Never Used Current occupational status: employed Cognitive needs: No Hearing needs: No Vision needs: Yes Questionnaire PHQ-9 Over the last 2 weeks, how often have you been bothered by any of the following problems? 1. Little interest or pleasure in doing things: not at all 2. Feeling down, depressed, or hopeless: not at all 3. Trouble falling or staying asleep, or sleeping too much: not at all 4. Feeling tired or having little energy: not at all 5. Poor appetite or overeating: not at all 6. Feeling bad about yourself - or that you are a failure or have let yourself or your family down: not at all 7. Trouble concentrating on things, such as reading the newspaper or watching television: not at all 8. Moving or speaking so slowly that other people could have noticed. Or the opposite - being so fidgety or restless that you have been moving around a lot more than usual: not at all 9. Thoughts that you would be better off or of hurting yourself in some way: not at all Total score: 0 Source: Developed by Drs. Dae King, Enid Peña, Andre Murphy and colleagues, with an educational magan from [employer]. Thrive Questionnaire Date Thrive assessed: 08/10/24 I am a: Patient What is your living situation today?: I have a steady place to live Within the past 12 months, did the food you bought not last and you didn't have the money to get more?: Often true Within the past 12 months, did you worry whether your food would run out before you got money to buy more?: Never true Do you have trouble paying for medicines?: No Do you have trouble getting transportation to medical appointments?: No Do you have trouble paying your heating and electricity bill?: I choose not to answer this question Do you have trouble taking care of your child, family member or friend?: I choose not to answer this question Do you have trouble with day-to-day activities such as bathing, preparing meals, shopping, managing finances, etc.?: No Are you currently unemployed and looking for a job?: No Are you interested in more education?: No Please select the resources that you would like help with: None Currently or been in a relationship where the following occur: No concerns reported THRIVE Score: 1 AUDIT C Alcohol Use Questionnaire (AUDIT-C) 1. How often do you have a drink containing alcohol?: Never 3. How often do you have six or more drinks on one occasion?: Never Total Score: 0 SALINA-7 AMB Questionnaire SALINA-7 Date SALINA - 7 assessed: 04/16/23 Feeling nervous, anxious, or on edge: 0 = Not at all Not being able to stop or control worryin = Not at all Worrying too much about different things: 0 = Not at all Trouble relaxin = Not at all Being so restless that it is hard to sit still: 0 = Not at all Becoming easily annoyed or irritable: 0 = Not at all Feeling afraid as if something awful might happen: 0 = Not at all Total SALINA-7 score (0-4 normal; 5-9 mild; 10-14 moderate; 15-21 severe): 0 Source: Developed by Drs. Dae King, Enid Peña, Andre Murphy and colleagues, with an educational magan from [employer]. Physical exam (Primary Care) Vital Signs: Last Vital Signs Pulse 68 08/17/24 10:11 BP 100/70 08/17/24 10:11 Pulse Ox 98 08/17/24 10:11 Oxygen Delivery Method Room Air 08/17/24 10:11 BMI result Body Mass Index 25.5 Tobacco/Smoking Status: Tobacco use Status Tobacco use date assessed 08/17/24 08/17/24 10:12 Patient Tobacco Use Status Never used Tobacco 08/17/24 10:12 e-Cigarette/Vaping Use Never Used 08/17/24 10:12 PHQ-9: PHQ-9 Score PHQ-9: Total score 0 08/17/24 10:51 Thrive Assessment: Date of Thrive Assessment Date Thrive assessed 08/10/24 08/17/24 10:12 Currently or been in a relationship where the following occur: No concerns reported Office Procedures Flu Questionnaire Does the patient have a severe egg allergy?: No Does the patient have severe life threatening allergies?: No Does the patient have a fever or illness today?: No Has the patient ever had Guillain-Almond Syndrome?: No Has the patient ever had any past reaction to a flu shot?: No Immunizations Fluarix Triv [id number] (PF) 45 mcg (15 mcg x 3)/0.5 mL IM syringe Performing Provider: Lanny Rivers MD Performing Location: [facility] Administered by: Luz Maria Thrasher CMA on 08/17/24 11:17 Dose Route Admin Location Dispensed Lot Number Expiration Date NDC Residential Property Manager 0.5 mL IM Right Deltoid 0.5 mL [id number] 03/07/25 [id number] [employer] VIS Given Date VIS Provided VIS Publication Date 08/17/24 Single Vaccine 21 Eligibility Eligibility Date Funding Source Not [facility] Eligible 08/17/24 Private Coding Diagnoses Annual visit for general adult medical examination with abnormal findings Z00. 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 Category: Medical (3) Advanced directives, counseling/discussion: Code(s): Z71.89 - Other specified counseling (4) Needs flu shot: Code(s): Z23 - Encounter for immunization Orders: Orders Alanine Aminotransferase Today E66.3 - Overweight, 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, Z00.01 - Encounter for general adult medical examination with abnormal findings, Z13.1 - Encounter for screening for diabetes mellitus, Z13.220 - Encounter for screening for lipoid disorders, Z71.89 - Other specified counseling Basic Metabolic Panel Fasting Today E66.3 - Overweight, 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01 - Encounter for general adult medical examination with abnormal findings, Z13.1 - Encounter for screening for diabetes mellitus, Z13.220 - Encounter for screening for lipoid disorders, Z71.89 - Other specified counseling Influenza [id number] Immunization Today Z23 - Encounter for immunization Aspartate Amino Transferase Today E66.3 - Overweight, 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, Z00.01 - Encounter for general adult medical examination with abnormal findings, Z13.1 - Encounter for screening for diabetes mellitus, Z13.220 - Encounter for screening for lipoid disorders, Z71.89 - Other specified counseling Hemoglobin and Hematocrit Today E66.3 - Overweight, 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, Z00.01 - Encounter for general adult medical examination with abnormal findings, Z13.1 - Encounter for screening for diabetes mellitus, Z13.220 - Encounter for screening for lipoid disorders, Z71.89 - Other specified counseling Medications: New Fluarix Triv [id number] (PF) (flu vacc [id number] 6mos up(PF)) 0.5 mL IM ONCE 0.5 mL 0RF NS Z23 - Encounter for immunization
== END 2024-08-17 11:04 | disposition home or self-care (01) ==
PROVIDERS: PCP Internal Medicine; Visit Provider Internal Medicine
DX: Z23 Encounter for immunization (principal)

== ENCOUNTER → 2024-08-17 09:33 | Outpatient (BNVA) | payer OTHER, SELFPAY | PROVIDERS: PCP Internal Medicine; Visit Provider Internal Medicine | DX: Z00.01 Encounter for general adult medical examination with abnormal findings (principal); Z23 Encounter for immunization; E80.4 Gilbert syndrome; Z71.89 Other specified counseling | CPT/HCPCS: 90471; 90656; 96127; 99396; 99497 ==

== ENCOUNTER 2024-08-25 10:58 | Outpatient (REF) | payer OTHER, SELFPAY ==
[2024-08-25 13:36] LABS: Hematocrit 42.3 % (42.0-52.0); Hemoglobin 13.5 g/dl (14.0-18.0)
[2024-08-25 13:49] LABS: Alanine Aminotransferase 18 U/L (0-40); Anion Gap 8 (12-20); Aspartate Amino Transferase 21 U/L (5-37); Blood Urea Nitrogen 16 mg/dL (9-16); Calcium 8.7 mg/dL (8.4-10.2); Carbon Dioxide 26 mmol/L (22-29); Chloride 108 mmol/L (96-108); Cholesterol 131 mg/dL (<200); Estimated Glomerular Filt Rate > 60; Glucose Fasting 91 mg/dL (60-99); HDL Cholesterol 34 mg/dL (>40); LDL Cholesterol Calculated 83 mg/dL (<100); Potassium 4.4 mmol/L (3.3-5.1); Sodium 138 mmol/L (135-145); Triglycerides 73 mg/dL (<150)
[2024-08-25 14:10] LABS: Vitamin D 25-OH Total 26.5 ng/mL (>30)
== END 2024-08-25 10:59 | disposition home or self-care (01) ==
LOC: HO.HMGCLDS 10:58
PROVIDERS: PCP Internal Medicine; Visit Provider Internal Medicine
DX: Z00.01 Encounter for general adult medical examination with abnormal findings (principal); E80.4 Gilbert syndrome; Z71.89 Other specified counseling; E66.3 Overweight; Z13.220 Encounter for screening for lipoid disorders; Z13.1 Encounter for screening for diabetes mellitus
CPT/HCPCS: 36415; 80048; 80061; 82306; 84450; 84460; 85014; 85018

== ENCOUNTER 2024-09-23 08:15 | Outpatient (AMB) | payer OTHER, SELFPAY ==
--- NOTE | 2024-09-23 08:22 | AM.OFFWIN_ITS ---
Intake Vital Signs 3 09/23/24 08:25 Weight 171 lb BP 108/70 Blood Pressure Location Lt brachial Position Sitting Pulse 65 Pulse Source Pulse Oximeter Pulse Oximetry (%) 98 Oxygen Delivery Method Room Air Intake Visit Reasons: EP ?Allergic reaction Intake Note: Patient here for rash all over body that has been present for about 1 week. Patient Tobacco Use Status: Never used Tobacco Allergies No Known Allergies [NKA] Allergy (Unknown, Verified 09/23/24 08:25) UNKNOWN Medication List - Last Reconciled 09/23/24 by Lin Best NP No Known Home Meds Do you need a note to return to daycare/school/sports/work: Yes HPI HPI Comments 2 History of Present Illness0 Details 49 y/o male patient who presents to the walk in clinic with c/o rash all over his body x 1 week. Reports that the rash is very itchy, flaky and dry. Denies any changes to medications, detergents, cosmetics or foods. Denies any fevers, chills, nausea or vomiting. [facility] Medical History (Updated 08/17/24 @ 10:51 by Lanny Rivers MD) Migraine without aura Pain, foot, chronic Cervicalgia Recurrent headache Intermittent lightheadedness Fatty liver COVID-19 vaccine series completed Right upper quadrant abdominal pain Seasonal allergic rhinitis Deviated nasal septum Anosmia Anemia Acute dermatitis Kidney stones Surgical History Nasal fracture Family History Father Diabetes mellitus Mother Kidney failure Sister No problems noted. Sister No problems noted. Sister No problems noted. Son No problems noted. Daughter No problems noted. Daughter No problems noted. Brother No problems noted. Brother No problems noted. Brother No problems noted. Brother No problems noted. Brother No problems noted. Social History Housing: House Alcohol intake: never Patient Tobacco Use Status: Never used Tobacco e-Cigarette/Vaping Use: Never Used Current occupational status: employed Cognitive needs: No Hearing needs: No Vision needs: Yes Review of Systems Const All systems reviewed & are unremarkable except as noted in HPI and below Physical Exam Vital Signs: Last Vital Signs Pulse 65 09/23/24 08:25 BP 108/70 09/23/24 08:25 Pulse Ox 98 09/23/24 08:25 Oxygen Delivery Method Room Air 09/23/24 08:25 Skin Lesions: lesion noted (upper torso, back arms and lower legs. ) Full body images: 2 1. macular papular rash, round raised red lesions. Dry flaky skin. 2. macular papular rash, round raised red lesions. Dry flaky skin. 3. macular papular rash, round raised red lesions. Dry flaky skin. 4. macular papular rash, round raised red lesions. Dry flaky skin. 5. macular papular rash, round raised red lesions. Dry flaky skin. 6. macular papular rash, round raised red lesions. Dry flaky skin. 7. macular papular rash, round raised red lesions. Dry flaky skin. Assessment & Plan Assessment & Plan (1) Rash and nonspecific skin eruption: Code(s): R21 - Rash and other nonspecific skin eruption Plan: Prednisone for few days RTC if not better by Friday. Medications: New 2 cetirizine (Zyrtec) 10 mg PO DAILY 30 tabs 0RF R21 - Rash and other nonspecific skin eruption diphenhydramine HCl (Benadryl) 25 mg PO BEDTIME PRN 30 caps 0RF sleep R21 - Rash and other nonspecific skin eruption prednisone 50 mg PO DAILY 5 tabs 0RF 5 days R21 - Rash and other nonspecific skin eruption triamcinolone acetonide 0.025% 1 appl topical BID 60 mL 1RF R21 - Rash and other nonspecific skin eruption Coding Level of Care Code Est Pt Level 4 (46772) Diagnoses Rash and nonspecific skin eruption R21 Time Spent (min) 20
[2024-09-23 08:25] VITALS: BP 108/70; PULSE 65; O2SAT 98
== END 2024-09-23 09:00 | disposition home or self-care (01) ==
PROVIDERS: PCP Internal Medicine; Visit Provider Nurse Practitioner Family
DX: R21 Rash and other nonspecific skin eruption (principal)

== ENCOUNTER → 2024-09-23 08:15 | Outpatient (BNVA) | payer OTHER, SELFPAY | PROVIDERS: PCP Internal Medicine; Visit Provider Nurse Practitioner Family | DX: R21 Rash and other nonspecific skin eruption (principal) | CPT/HCPCS: 99212 ==

== ENCOUNTER 2024-10-06 08:04 | Outpatient (AMB) | payer OTHER, SELFPAY ==
[2024-10-06 08:07] VITALS: BP 102/80; PULSE 81; O2SAT 98; BMI 24.9
--- NOTE | 2024-10-06 08:07 | A.OFFPC_ITS ---
Vital Signs 10/06/24 08:07 Height 5 ft 8 in Weight 164 lb BMI 24.9 BP 102/80 Blood Pressure Location Rt brachial Position Sitting Pulse 81 Pulse Source Pulse Oximeter Pulse Oximetry (%) 98 Oxygen Delivery Method Room Air Intake Visit Reasons: rash on body Allergies No Known Allergies [NKA] Allergy (Unknown, Verified 10/06/24 08:22) UNKNOWN Medication List - Last Reconciled 10/06/24 by Lanny Rivers MD hydrocortisone 2.5% 1 appl topical BID PRN Tobacco use date assessed: 10/06/24 Dental Screening Dental Screen Date: 08/17/24 HPI rash on body HPI Details 49-year-old male here today for follow-u p on a rash which has started several weeks ago. Initially was seen at the walk-in clinic and prescribed the 5 day course of prednisone and go to take cetirizine as needed. Patient states that rash cleared up temporarily then came back again after stopping prednisone. He was referred to dermatology and was seen at [facility] yesterday. Skin biopsy was done with results still pending. Patient was advised to stop taking Zyrtec and was prescribed hydrocortisone 2.5% cream to apply to the rash on his face which they think is most likely psoriasis . He has an appointment to see them back on 10/19/2024 for removal of stitches and follow-up on biopsy results.. No other family members have same symptoms, they do not have any pet at home nor did he have any recent travel or new foods introduced in his diet. Results of recent fasting labs done a month ago was discussed with patient which showed presence of normal electrolytes, fasting glucose, lipids, but vitamin-D is low. Currently not taking any vitamin D supplements liver enzymes slightly elevated but patient has history of Gilbert's syndrome. [facility] Medical History (Updated 10/06/24 @ 08:41 by Lanny Rivers MD) Vitamin D deficiency Acute dermatitis Migraine without aura Cervicalgia Intermittent lightheadedness Fatty liver COVID-19 vaccine series completed Right upper quadrant abdominal pain Seasonal allergic rhinitis Deviated nasal septum Anosmia Kidney stones Surgical History Nasal fracture Family History Father Diabetes mellitus Mother Kidney failure Sister No problems noted. Sister No problems noted. Sister No problems noted. Son No problems noted. Daughter No problems noted. Daughter No problems noted. Brother No problems noted. Brother No problems noted. Brother No problems noted. Brother No problems noted. Brother No problems noted. Social History Housing: House Alcohol intake: never Patient Tobacco Use Status: Never used Tobacco e-Cigarette/Vaping Use: Never Used Current occupational status: employed Cognitive needs: No Hearing needs: No Vision needs: Yes Questionnaire PHQ-9 Over the last 2 weeks, how often have you been bothered by any of the following problems? 1. Little interest or pleasure in doing things: not at all 2. Feeling down, depressed, or hopeless: not at all 3. Trouble falling or staying asleep, or sleeping too much: not at all 4. Feeling tired or having little energy: not at all 5. Poor appetite or overeating: not at all 6. Feeling bad about yourself - or that you are a failure or have let yourself or your family down: not at all 7. Trouble concentrating on things, such as reading the newspaper or watching television: not at all 8. Moving or speaking so slowly that other people could have noticed. Or the opposite - being so fidgety or restless that you have been moving around a lot more than usual: not at all 9. Thoughts that you would be better off or of hurting yourself in some way: not at all Total score: 0 Depression Screening Interpretation: Negative Depression Screening Done: Yes 83635 - PHQ-9 Billing: Yes Source: Developed by Drs. Dae King, Enid Peña, Andre Murphy and colleagues, with an educational magan from [employer]. Thrive Questionnaire Date Thrive assessed: 10/03/24 I am a: Patient What is your living situation today?: I have a steady place to live Within the past 12 months, did the food you bought not last and you didn't have the money to get more?: I choose not to answer this question Within the past 12 months, did you worry whether your food would run out before you got money to buy more?: Never true Do you have trouble paying for medicines?: No Do you have trouble getting transportation to medical appointments?: I choose not to answer this question Do you have trouble paying your heating and electricity bill?: I choose not to answer this question Do you have trouble taking care of your child, family member or friend?: No Do you have trouble with day-to-day activities such as bathing, preparing meals, shopping, managing finances, etc.?: No Are you currently unemployed and looking for a job?: No Are you interested in more education?: No Please select the resources that you would like help with: None Currently or been in a relationship where the following occur: No concerns reported THRIVE Score: 0 AUDIT C Alcohol Use Questionnaire (AUDIT-C) 1. How often do you have a drink containing alcohol?: Never 3. How often do you have six or more drinks on one occasion?: Never Total Score: 0 SALINA-7 AMB Questionnaire SALINA-7 Date SALINA - 7 assessed: 10/06/24 Feeling nervous, anxious, or on edge: 0 = Not at all Not being able to stop or control worryin = Not at all Worrying too much about different things: 0 = Not at all Trouble relaxin = Not at all Being so restless that it is hard to sit still: 0 = Not at all Becoming easily annoyed or irritable: 0 = Not at all Feeling afraid as if something awful might happen: 0 = Not at all Total SALINA-7 score (0-4 normal; 5-9 mild; 10-14 moderate; 15-21 severe): 0 Source: Developed by Drs. Dae King, Enid Peña, Andre Murphy and colleagues, with an educational magan from [employer]. SALINA-7 Assessment Billing SALINA-7 Assessment Tool: SALINA-7 Assessment 26833 Review of Systems Const All systems reviewed & are unremarkable except as noted in HPI and below Physical exam (Primary Care) Vital Signs: Last Vital Signs Pulse 81 10/06/24 08:07 BP 102/80 10/06/24 08:07 Pulse Ox 98 10/06/24 08:07 Oxygen Delivery Method Room Air 10/06/24 08:07 BMI result Body Mass Index 24.9 Tobacco/Smoking Status: Tobacco use Status Tobacco use date assessed 10/06/24 10/06/24 08:17 Patient Tobacco Use Status Never used Tobacco 10/06/24 08:09 e-Cigarette/Vaping Use Never Used 10/06/24 08:09 Depression Screening Interpretation: Negative Thrive Assessment: Date of Thrive Assessment Date Thrive assessed 10/03/24 10/06/24 08:09 Currently or been in a relationship where the following occur: No concerns reported Const Other: Alert oriented x3, no acute distress noted ambulatory normal gait HENMT Ears: external ears normal General nose exam: Normal external nose present Face and sinus: Yes sinuses nontender and Yes face symmetric Mouth: Normal oral and palatal mucosa present, oropharynx normal and moist mucous membranes Eyes General: appearance normal, both eyes and all related structures Neck Neck: Yes full ROM, Yes no lymphadenopathy and Yes supple Resp Auscultation: clear to auscultation bilaterally Cardio Other: S1-S2 present regular rate and rhythm GI Other: Global bowel sounds, soft nontender with no mass palpated Skin Other: Scattered ; macular rash, scattered on face, neck, trunk, upper and lower extremities sparing palms Extrem General: Yes full ROM, Yes no joint enlargement, Yes no clubbing, cyanosis or edema and Yes normal gait Coding Level of Care Code Est Pt Level 3 (94776) Diagnoses Acute dermatitis L30.9 Vitamin D deficiency E55.9 Additional Codes SALINA-7 Assessment Billing - SALINA-7 Assessment Tool: SALINA-7 Assessment 83796 ([id number]) PHQ-9 - 23303 - PHQ-9 Billing: Yes ([id number]) Assessment & Plan Assessment & Plan (1) Acute dermatitis: Code(s): L30.9 - Dermatitis, unspecified Category: Medical Plan: Patient currently applying hydrocortisone cream 2.5% to rash on face. Advised to use cream sparingly. Keep follow-up appointment with [facility] on 10/19/2024 for removal of stitches in follow-up. (2) Vitamin D deficiency: Code(s): E55.9 - Vitamin D deficiency, unspecified Category: Medical Plan: Advised to start taking [id number] vitamin D3 at 2000 units IU or 50 mcg once a day
== END 2024-10-06 09:07 | disposition home or self-care (01) ==
PROVIDERS: PCP Internal Medicine; Visit Provider Internal Medicine
DX: L30.9 Dermatitis, unspecified (principal); E55.9 Vitamin D deficiency, unspecified

== ENCOUNTER → 2024-10-06 08:04 | Outpatient (BNVA) | payer OTHER, SELFPAY | PROVIDERS: PCP Internal Medicine; Visit Provider Internal Medicine | DX: L30.9 Dermatitis, unspecified (principal); E55.9 Vitamin D deficiency, unspecified | CPT/HCPCS: 96127; 99212 ==

== ENCOUNTER 2024-11-03 11:08 | Outpatient (AMB) | payer OTHER, SELFPAY ==
[2024-11-03 11:43] VITALS: BP 140/80; PULSE 75; O2SAT 98; BMI 24.9
--- NOTE | 2024-11-03 11:43 | AM.OFFWIN_ITS ---
Intake Vital Signs 11/03/24 11:43 Height 5 ft 8 in Weight 164 lb BMI 24.9 BP 140/80 H Blood Pressure Location Lt brachial Position Sitting Pulse 75 Pulse Source Pulse Oximeter Pulse Oximetry (%) 98 Oxygen Delivery Method Room Air Intake Visit Reasons: EP High BP 145/120 headache Intake Note: Patient here for elevated BP that has been present for about 2 weeks. Patient Tobacco Use Status: Never used Tobacco Allergies No Known Allergies [NKA] Allergy (Unknown, Verified 11/03/24 11:45) UNKNOWN Do you need a note to return to daycare/school/sports/work: No HPI HPI Comments History of Present Illness Details History of Present Illness - The patient is a 49-year-old male pres enting with Elevated blood pressures and headache. - Blood pressure elevation was noted aft er a foam caster visit on October 19, with regular readings since then as high as 172 systolic. - Recent blood pressure measurements ind icate values like 145/112 mm Hg and 144/80 mm Hg, accompanied by headaches and occasional chest pain with the 172 systolic episode. - No associated light headedness, dizzin ess, numbness/tingling in arms, chest pain radiating to the back was reported. - Patient maintains a blood pressure log , confirming consistent elevation. - There is a prior history of kidney sto rebekah, and recent renal function tests were normal. - He has a BP machine at home and his br other is a doctor who is helping check his BP's Physical Exam General: Cooperative, healthy appearing, comfortable, no acute distress and well developed Orientation: Patient oriented x3 Limitations: No limitations Head: Normal to inspection Ears: Hearing grossly normal bilaterally Nose: Normal external nose present Face and sinus: Normal facial exam Eyes: Appearance normal, both eyes and all related structures Neck: Normal visual inspection and Yes full ROM Respiratory: Normal respiratory effort and able to speak in complete sentences. Clear to auscultation bilaterally Cardiovascular: Regular rate and rhythm. Normal S1 and S2 Skin: No rashes or lesions noted Neuro: Patient oriented x3 Extremities: Normal to inspection [facility] Medical History (Updated 11/03/24 @ 12:12 by Gertrude Butts PA-C) Vitamin D deficiency Acute dermatitis Migraine without aura Cervicalgia Intermittent lightheadedness Fatty liver COVID-19 vaccine series completed Right upper quadrant abdominal pain Seasonal allergic rhinitis Deviated nasal septum Anosmia Kidney stones Surgical History Nasal fracture Family History Father Diabetes mellitus Mother Kidney failure Sister No problems noted. Sister No problems noted. Sister No problems noted. Son No problems noted. Daughter No problems noted. Daughter No problems noted. Brother No problems noted. Brother No problems noted. Brother No problems noted. Brother No problems noted. Brother No problems noted. Social History Housing: House Alcohol intake: never Patient Tobacco Use Status: Never used Tobacco e-Cigarette/Vaping Use: Never Used Current occupational status: employed Cognitive needs: No Hearing needs: No Vision needs: Yes Review of Systems Const All systems reviewed & are unremarkable except as noted in HPI and below Physical Exam Vital Signs: Last Vital Signs Pulse 75 11/03/24 11:43 BP 140/80 H 11/03/24 11:43 Pulse Ox 98 11/03/24 11:43 Oxygen Delivery Method Room Air 11/03/24 11:43 BMI result Body Mass Index 24.9 Assessment & Plan Assessment & Plan (1) Hypertension: Code(s): I10 - Essential (primary) hypertension Qualifiers: Hypertension type: unspecified Qualified Code(s): I10 - Essential (primary) hypertension Plan: Plan Initiation of a daily antihypertensive medication at 5 mg is planned, with the patient advised to monitor blood pressure twice daily. Renal function will be evaluated before the follow-up visit, with blood work scheduled for November 15. The patient should meet with a nurse navigator on November 19 for further evaluation and to adjust treatment as required. Treatment goals and expected outcomes were discussed, and the patient was advised on when to withhold medication based on blood pressure readings. Immediate management focuses on stabilizing blood pressure and ensuring kidney safety with new medication. Gave him parameters to call us prior to NN appt such as persistently elevated BPs and persistent headaches and when to not take the medication, BP < 90/60. Patient was informed and verbally consented to the use of an ambient scribe for clinic note documentation during this visit. Orders: Orders Comprehensive Met. Panel 11/15/24 I10 - Essential (primary) hypertension Medications: New lisinopril 5 mg PO DAILY 30 tabs 0RF Coding Level of Care Code Est Pt Level 4 (90330) Diagnoses Hypertension, unspecified type I10 Hypertension type: unspecified
== END 2024-11-03 12:20 | disposition home or self-care (01) ==
PROVIDERS: PCP Internal Medicine; Visit Provider Physician Assistant
DX: I10 Essential (primary) hypertension (principal)

== ENCOUNTER → 2024-11-03 11:08 | Outpatient (BNVA) | payer OTHER, SELFPAY | PROVIDERS: PCP Internal Medicine | DX: I10 Essential (primary) hypertension (principal) | CPT/HCPCS: 99212 ==

== ENCOUNTER 2024-11-15 11:50 | Outpatient (REF) | payer OTHER, SELFPAY ==
[2024-11-15 14:12] LABS: Alanine Aminotransferase 20 U/L (0-40); Albumin Level 3.8 g/dL (3.5-5.0); Alkaline Phosphatase 83 U/L (39-117); Anion Gap 10 (12-20); Aspartate Amino Transferase 15 U/L (5-37); Bilirubin Total 0.8 mg/dL (0.0-1.0); Blood Urea Nitrogen 14 mg/dL (9-16); Calcium 9.2 mg/dL (8.4-10.2); Carbon Dioxide 24 mmol/L (22-29); Chloride 110 mmol/L (96-108); Estimated Glomerular Filt Rate > 60; Glucose Random 93 mg/dL (60-115); Potassium 3.9 mmol/L (3.3-5.1); Sodium 140 mmol/L (135-145); Total Protein 7.5 g/dL (6.5-8.0)
== END 2024-11-15 11:51 | disposition home or self-care (01) ==
LOC: HO.HMGCLDS 11:50
PROVIDERS: PCP Internal Medicine; Visit Provider Physician Assistant
DX: I10 Essential (primary) hypertension (principal)
CPT/HCPCS: 36415; 80053

== ENCOUNTER → 2024-12-03 11:50 | Outpatient (BNVA) | payer OTHER, SELFPAY | PROVIDERS: PCP Internal Medicine ==

== ENCOUNTER 2025-02-10 10:30 | Outpatient (AMB) | payer OTHER, SELFPAY ==
[2025-02-10 10:47] VITALS: BP 118/74; PULSE 73; TEMP 36.7; O2SAT 98; BMI 25.5
--- NOTE | 2025-02-10 10:47 | AM.OFFWIN_ITS ---
Intake Vital Signs 02/10/25 10:47 Height 5 ft 8 in Weight 167 lb 8 oz BMI 25.5 BP 118/74 Blood Pressure Location Lt brachial Position Sitting Pulse 73 Pulse Source Pulse Oximeter Temp 98.0 F Temp Source Oral Pulse Oximetry (%) 98 Oxygen Delivery Method Room Air Intake Visit Reasons: EP-chest pain Intake Note: Pt presents to the office today for c/o chest pain that comes and goes x1 month. Patient Tobacco Use Status: Never used Tobacco Allergies No Known Allergies [NKA] Allergy (Unknown, Verified 02/10/25 10:50) UNKNOWN [facility] Medical History (Updated 11/03/24 @ 12:12 by Gertrude Butts PA-C) Vitamin D deficiency Acute dermatitis Migraine without aura Cervicalgia Intermittent lightheadedness Fatty liver COVID-19 vaccine series completed Right upper quadrant abdominal pain Seasonal allergic rhinitis Deviated nasal septum Anosmia Kidney stones Surgical History Nasal fracture Family History Father Diabetes mellitus Mother Kidney failure Sister No problems noted. Sister No problems noted. Sister No problems noted. Son No problems noted. Daughter No problems noted. Daughter No problems noted. Brother No problems noted. Brother No problems noted. Brother No problems noted. Brother No problems noted. Brother No problems noted. Social History Housing: House Alcohol intake: never Patient Tobacco Use Status: Never used Tobacco e-Cigarette/Vaping Use: Never Used Current occupational status: employed Cognitive needs: No Hearing needs: No Vision needs: Yes Coding
--- NOTE | 2025-02-10 10:48 | MHC.OFFWIV ---
Intake Vital Signs 02/10/25 10:47 02/10/25 10:51 Height 5 ft 8 in Weight 167 lb 8 oz BMI 25.5 BP 118/74 128/83 Blood Pressure Location Lt brachial Lt brachial Position Sitting Sitting Respiration 14 Pulse 73 71 Pulse Source Pulse Oximeter Pulse Oximeter Temp 98.0 F 98 F Temp Source Oral Pulse Oximetry (%) 98 98 Oxygen Delivery Method Room Air Room Air Intake Visit Reasons: EP-chest pain Intake Note: Pt came into the [place] [facility] c/o intermittent chest pain x 1 month. Pt stated mid-sternum chest pain that radiates to the right and left of chest. Pt A/o x 3 no sob/eligio noted. Speaks in full sentences. Pt denied any chest pain today. Lungs - cta. Heart sounds regular. Provider (NUNU) Lin and MA (Bindu) aware. Pt to have Ekg done. Patient Tobacco Use Status: Never used Tobacco Allergies No Known Allergies [NKA] Allergy (Unknown, Verified 02/10/25 10:50) UNKNOWN HPI HPI Comments History of Present Illness Details 49 y/o Male patient who presents to the walk in clinic with c/o Intermittent Chest pains for 1 month now. Reports that pain is located mid-sternum chest and radiates to the right and left of chest. Reports pain worse at nighttime after eating dinner. Reports Oily and spicy foods makes the pain worse. Denies bloating, constipation or diarrhea. Denies Nausea or vomiting. [facility] Medical History (Updated 02/10/25 @ 11:11 by Lin Best NP) Chest pain Vitamin D deficiency Acute dermatitis Migraine without aura Cervicalgia Intermittent lightheadedness Fatty liver COVID-19 vaccine series completed Right upper quadrant abdominal pain Seasonal allergic rhinitis Deviated nasal septum Anosmia Kidney stones Surgical History Nasal fracture Family History Father Diabetes mellitus Mother Kidney failure Sister No problems noted. Sister No problems noted. Sister No problems noted. Son No problems noted. Daughter No problems noted. Daughter No problems noted. Brother No problems noted. Brother No problems noted. Brother No problems noted. Brother No problems noted. Brother No problems noted. Social History Housing: House Alcohol intake: never Patient Tobacco Use Status: Never used Tobacco e-Cigarette/Vaping Use: Never Used Current occupational status: employed Cognitive needs: No Hearing needs: No Vision needs: Yes Review of Systems Const All systems reviewed & are unremarkable except as noted in HPI and below Physical Exam Vital Signs: Last Vital Signs Temp 98 F 02/10/25 10:51 Pulse 71 02/10/25 10:51 Resp 14 02/10/25 10:51 BP 128/83 02/10/25 10:51 Pulse Ox 98 02/10/25 10:51 Oxygen Delivery Method Room Air 02/10/25 10:51 BMI result Body Mass Index 25.5 Const General: comfortable and no acute distress Nutritional Appearance: well nourished Orientation/consciousness: patient oriented x3 Resp Effort & Inspection: normal respiratory effort and able to speak in complete sentences Auscultation: clear to auscultation bilaterally, no crackles, no rales, no rhonchi and no wheezes Cardio Heart sounds: S1 normal heart sound present and S2 normal heart sound present GI Inspection: Yes normal to inspection Palpation (GI): Soft to palpation, not firm, Tenderness to palpation present (GI) in the epigastrum, no guarding, not rigid and No hepatosplenomegaly present Auscultation: normal bowel sounds Neuro General: patient oriented x3 Assessment & Plan Assessment & Plan (1) Chest pain: Code(s): R07.9 - Chest pain, unspecified Qualifiers: Chest pain type: unspecified Qualified Code(s): R07.9 - Chest pain, unspecified Plan: EKG - Sinus rhythm. Probably GERD - ordered Famotidine for bedtime. Lifestyle changes Medications: New famotidine 40 mg PO BEDTIME 14 days 14 tabs 0RF R07.9 - Chest pain, unspecified Coding Level of Care Code Est Pt Level 4 (64506) Diagnoses Chest pain, unspecified type R07.9 Chest pain type: unspecified Time Spent (min) 20
[2025-02-10 10:51] VITALS: BP 128/83; PULSE 71; RESP 14; TEMP 36.6; O2SAT 98
== END 2025-02-10 11:17 | disposition home or self-care (01) ==
PROVIDERS: PCP Internal Medicine; Visit Provider Nurse Practitioner Family
DX: R07.9 Chest pain, unspecified (principal)

== ENCOUNTER → 2025-02-10 10:30 | Outpatient (BNVA) | payer OTHER, SELFPAY | PROVIDERS: PCP Internal Medicine; Visit Provider Nurse Practitioner Family | DX: R07.9 Chest pain, unspecified (principal) | CPT/HCPCS: 93005; 99212 ==

== ENCOUNTER 2025-04-20 10:40 | Outpatient (AMB) | payer OTHER, SELFPAY ==
--- NOTE | 2025-04-20 10:55 | MHC.OFFWIV ---
Intake Vital Signs 04/20/25 10:56 Height 5 ft 8 in Weight 166 lb BMI 25.2 BP 116/66 Blood Pressure Location Rt brachial Position Sitting Pulse 82 Pulse Source Pulse Oximeter Temp 98.3 F Temp Source Oral Pulse Oximetry (%) 97 Oxygen Delivery Method Room Air Intake Visit Reasons: EP Burning in feet Patient Tobacco Use Status: Never used Tobacco Control Systems Technician Required: No Allergies No Known Allergies (NKA) Allergy (Unknown, Verified 04/20/25 11:02) UNKNOWN Do you need a note to return to daycare/school/sports/work: Yes HPI HPI Comments History of Present Illness Details History of Present Illness - The patient is a 49-year-old male presenting with pain in both feet. - Reports burning sensation and pain in both feet. - Stands for extended periods at work, potentially worsening the condition. - No diabetes or symptoms of diabetes - Does not drink a lot of energy drinks or take supplemental vitamin B Physical Exam General: Cooperative, healthy appearing, comfortable, no acute distress and well developed Orientation: Patient oriented x3 Limitations: No limitations Head: Normal to inspection Ears: Hearing grossly normal bilaterally Nose: Normal External nose present Face and sinus: Normal facial exam Eyes: Appearance normal, both eyes and all related structures Neck: Normal visual inspection and Yes full ROM Respiratory: Normal respiratory effort and able to speak in complete sentences. Skin: No rashes or lesions noted Neuro: Patient oriented x3, normal gait Extremities: pain with palpation of plantar aspect of bilateral feet, both feet and toes have normal ROM, toes NVI; no skin changes observed [facility] Medical History (Updated 04/20/25 @ 11:51 by Gertrude Butts PA-C) Chest pain Vitamin D deficiency Acute dermatitis Migraine without aura Cervicalgia Intermittent lightheadedness Fatty liver COVID-19 vaccine series completed Right upper quadrant abdominal pain Seasonal allergic rhinitis Deviated nasal septum Anosmia Kidney stones Surgical History Nasal fracture Family History Father Diabetes mellitus Mother Kidney failure Sister No problems noted. Sister No problems noted. Sister No problems noted. Son No problems noted. Daughter No problems noted. Daughter No problems noted. Brother No problems noted. Brother No problems noted. Brother No problems noted. Brother No problems noted. Brother No problems noted. Social History Housing: House Alcohol intake: never Patient Tobacco Use Status: Never used Tobacco e-Cigarette/Vaping Use: Never Used Current occupational status: employed Cognitive needs: No Hearing needs: No Vision needs: Yes Review of Systems Const All systems reviewed & are unremarkable except as noted in HPI and below Physical Exam Vital Signs: Last Vital Signs Temp 98.3 F 04/20/25 10:56 Pulse 82 04/20/25 10:56 BP 116/66 04/20/25 10:56 Pulse Ox 97 04/20/25 10:56 Oxygen Delivery Method Room Air 04/20/25 10:56 BMI result Body Mass Index 25.2 Assessment & Plan Assessment & Plan (1) Bilateral plantar fasciitis: Code(s): M72.2 - Plantar fascial fibromatosis Plan: Plan - Recent labs indicated normal blood glucose, no diabetes symptoms, less likely neuropathy. - Use a frozen water bottle to roll under the feet for pain relief. - Take Aleve naproxen every 12 hours for 2-3 days to reduce inflammation. - Obtain Dr. Boyle's or similar plantar fasciitis pain relief inserts for shoes. - Rest feet by sitting when possible at work. - Follow-up here or with PCP if symptoms do not improve after implementing these measures. Patient was informed and verbally consented to the use of an ambient scribe for clinic note documentation during this visit. Coding Level of Care Code Est Pt Level 3 (94005) Diagnoses Bilateral plantar fasciitis M72.2
[2025-04-20 10:56] VITALS: BP 116/66; PULSE 82; TEMP 36.8; O2SAT 97; BMI 25.2
== END 2025-04-20 12:06 | disposition home or self-care (01) ==
PROVIDERS: PCP Internal Medicine; Visit Provider Physician Assistant
DX: M72.2 Plantar fascial fibromatosis (principal)

== ENCOUNTER → 2025-04-20 10:40 | Outpatient (BNVA) | payer OTHER, SELFPAY | PROVIDERS: PCP Internal Medicine; Visit Provider Physician Assistant | DX: M72.2 Plantar fascial fibromatosis (principal) | CPT/HCPCS: 99212 ==

== ENCOUNTER 2025-05-30 11:01 | Outpatient (AMB) | payer OTHER, SELFPAY ==
--- NOTE | 2025-05-30 11:24 | MHC.OFFWIV ---
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 He was seen here back in 04/2025 and was diagnosed with Plantar Fasciitis. He was educated on ways to treat the symptoms at home. Reports that he did the exercises and used warm water bath with minimal relief. 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 [facility] Medical History (Updated 04/20/25 @ 11:51 by Gertrude Butts PA-C) Chest pain Vitamin D deficiency Acute dermatitis Migraine without aura Cervicalgia Intermittent lightheadedness Fatty liver COVID-19 vaccine series completed Right upper quadrant abdominal pain Seasonal allergic rhinitis Deviated nasal septum Anosmia Kidney stones Surgical History Nasal fracture Family History Father Diabetes mellitus Mother Kidney failure Sister No problems noted. Sister No problems noted. Sister No problems noted. Son No problems noted. Daughter No problems noted. Daughter No problems noted. Brother No problems noted. Brother No problems noted. Brother No problems noted. Brother No problems noted. Brother No problems noted. Social History Housing: House Alcohol intake: never Patient Tobacco Use Status: Never used Tobacco e-Cigarette/Vaping Use: Never Used Current occupational status: employed Cognitive needs: No Hearing needs: No Vision needs: Yes Review of Systems Const All systems reviewed & are unremarkable except as noted in HPI and below Physical Exam Vital Signs: Last Vital Signs Temp 98.2 F 05/30/25 11:26 Pulse 74 05/30/25 11:26 Resp 16 05/30/25 11:26 BP 134/84 05/30/25 11:26 Pulse Ox 98 05/30/25 11:26 Oxygen Delivery Method Room Air 05/30/25 11:26 BMI result Body Mass Index 25.4 Const General: no acute distress Nutritional Appearance: overweight Orientation/consciousness: patient oriented x3 Neuro General: patient oriented x3, gait normal and moves all extremities Extrem Right lower extremity: normal to inspection, full ROM and foot Details: tenderness Location: of the plantar foot and toes with normal ROM Left lower extremity: normal to inspection, full ROM and foot Details: tenderness Location: of the plantar foot and toes with normal ROM Psych Speech and movement: Normal speech and movement present Assessment & Plan Assessment & Plan (1) Bilateral plantar fasciitis: Code(s): M72.2 - Plantar fascial fibromatosis Plan: Discussed treatment in length including Steroid Injections, NSAIDs, Acetaminophen, Soaking feet in warm water, getting comfortable shoes with Memory form and change Job. Pt declined Steroid injections for now, he would like to try Physical Therapy first. Orders: Orders PT Evaluation and Treatment Today M72.2 - Plantar fascial fibromatosis Medications: New acetaminophen 1,000 mg (2 x 500 mg) PO Q6H PRN 30 caps 0RF pain M72.2 - Plantar fascial fibromatosis ibuprofen 800 mg PO Q8H 30 tabs 0RF M72.2 - Plantar fascial fibromatosis Coding Level of Care Code Est Pt Level 4 (17405) Diagnoses Bilateral plantar fasciitis M72.2 Time Spent (min) 20
[2025-05-30 11:26] VITALS: BP 134/84; PULSE 74; RESP 16; TEMP 36.8; O2SAT 98; BMI 25.4
== END 2025-05-30 12:04 | disposition home or self-care (01) ==
PROVIDERS: PCP Internal Medicine; Visit Provider Nurse Practitioner Family
DX: M72.2 Plantar fascial fibromatosis (principal)

== ENCOUNTER → 2025-05-30 11:01 | Outpatient (BNVA) | payer OTHER, SELFPAY | PROVIDERS: PCP Internal Medicine; Visit Provider Nurse Practitioner Family | DX: M72.2 Plantar fascial fibromatosis (principal) | CPT/HCPCS: 99212 ==

== ENCOUNTER 2025-06-15 15:19 | Outpatient (AMB) | payer OTHER, SELFPAY ==
--- NOTE | 2025-06-15 15:35 | A.OFFPC_ITS ---
Vital Signs 06/15/25 15:37 Height 5 ft 8 in Weight 163 lb BMI 24.8 BP 144/80 H Blood Pressure Location Rt brachial Position Sitting Respiration 16 Pulse 94 Pulse Source Pulse Oximeter Temp 98.0 F Pulse Oximetry (%) 99 Oxygen Delivery Method Room Air Intake Visit Reasons: three weeks under feet pain Intake Note: Pt is here today c/o bilateral feet and hands burning sensation Allergies No Known Allergies (NKA) Allergy (Unknown, Verified 06/20/25 02:15) UNKNOWN Medication List - Last Reconciled 06/20/25 by Lanny Rivers MD acetaminophen 1,000 mg (2 x 500 mg) PO Q6H PRN famotidine 40 mg PO BEDTIME 14 days hydrocortisone 2.5% 1 appl topical BID PRN Tobacco use date assessed: 06/15/25 Dental Screening Dental Screen Date: 06/15/25 Did you have a dental visit in the last 12 months?: Yes Did you have a dental problem in the last 6 months where you did not have access to dental care?: No Was dental information given to patient?: Patient has dentist HPI three weeks under feet pain HPI Details The patient is a 49-year-old male presenting with burning sensation in the feet and hands. The symptoms began approximately three weeks ago without any known inciting event. The burning sensation is more pronounced at night and affects both the bottom of the feet and the hands. The patient has attempted soaking the feet in cold water, which provided temporary relief. There is no associated pain with movement, but the burning sensation is exacerbated by stepping. The patient denies any previous episodes of similar symptoms. The patient has a family history of diabetes, with both parents affected, although his blood glucose levels have been normal for the past two years. He has not been taking any supplements regularly but started and stopped some three days ago. The patient has not seen a roads superintendent previously despite being referred. [facility] Medical History (Updated 06/15/25 @ 16:02 by Lanny Rivers MD) Burning sensation of feet Chest pain Vitamin D deficiency Acute dermatitis Migraine without aura Cervicalgia Intermittent lightheadedness Fatty liver COVID-19 vaccine series completed Right upper quadrant abdominal pain Seasonal allergic rhinitis Deviated nasal septum Anosmia Kidney stones Surgical History Nasal fracture Family History Father Diabetes mellitus Mother Kidney failure Sister No problems noted. Sister No problems noted. Sister No problems noted. Son No problems noted. Daughter No problems noted. Daughter No problems noted. Brother No problems noted. Brother No problems noted. Brother No problems noted. Brother No problems noted. Brother No problems noted. Social History Housing: House Alcohol intake: never Patient Tobacco Use Status: Never used Tobacco e-Cigarette/Vaping Use: Never Used Current occupational status: employed Cognitive needs: No Hearing needs: No Vision needs: Yes Questionnaire PHQ-9 Over the last 2 weeks, how often have you been bothered by any of the following problems? 1. Little interest or pleasure in doing things: not at all 2. Feeling down, depressed, or hopeless: not at all 3. Trouble falling or staying asleep, or sleeping too much: not at all 4. Feeling tired or having little energy: not at all 5. Poor appetite or overeating: not at all 6. Feeling bad about yourself - or that you are a failure or have let yourself or your family down: not at all 7. Trouble concentrating on things, such as reading the newspaper or watching television: not at all 8. Moving or speaking so slowly that other people could have noticed. Or the opposite - being so fidgety or restless that you have been moving around a lot more than usual: not at all 9. Thoughts that you would be better off or of hurting yourself in some way: not at all Total score: 0 Depression Screening Interpretation: Negative Depression Screening Done: Yes Source: Developed by Drs. Dae King, Enid Peña, Andre Murphy and colleagues, with an educational magan from [employer]. Thrive Questionnaire Date Thrive assessed: 10/03/24 I am a: Patient What is your living situation today?: I have a steady place to live Within the past 12 months, did the food you bought not last and you didn't have the money to get more?: I choose not to answer this question Within the past 12 months, did you worry whether your food would run out before you got money to buy more?: Never true Do you have trouble paying for medicines?: No Do you have trouble getting transportation to medical appointments?: I choose not to answer this question Do you have trouble paying your heating and electricity bill?: I choose not to answer this question Do you have trouble taking care of your child, family member or friend?: No Do you have trouble with day-to-day activities such as bathing, preparing meals, shopping, managing finances, etc.?: No Are you currently unemployed and looking for a job?: No Are you interested in more education?: No Please select the resources that you would like help with: None Currently or been in a relationship where the following occur: No concerns reported THRIVE Score: 0 AUDIT C Alcohol Use Questionnaire (AUDIT-C) 1. How often do you have a drink containing alcohol?: Never 3. How often do you have six or more drinks on one occasion?: Never Total Score: 0 SALINA-7 AMB Questionnaire SALINA-7 Date SALINA - 7 assessed: 10/06/24 Feeling nervous, anxious, or on edge: 0 = Not at all Not being able to stop or control worryin = Not at all Worrying too much about different things: 0 = Not at all Trouble relaxin = Not at all Being so restless that it is hard to sit still: 0 = Not at all Becoming easily annoyed or irritable: 0 = Not at all Feeling afraid as if something awful might happen: 0 = Not at all Total SALINA-7 score (0-4 normal; 5-9 mild; 10-14 moderate; 15-21 severe): 0 Source: Developed by Drs. Dae King, Enid Peña, Andre Murphy and colleagues, with an educational magan from [employer]. Review of Systems Const All systems reviewed & are unremarkable except as noted in HPI and below Physical exam (Primary Care) Vital Signs: Last Vital Signs Temp 98.0 F 06/15/25 15:37 Pulse 94 06/15/25 15:37 Resp 16 06/15/25 15:37 BP 144/80 H 06/15/25 15:37 Pulse Ox 99 06/15/25 15:37 Oxygen Delivery Method Room Air 06/15/25 15:37 BMI result Body Mass Index 24.8 Tobacco/Smoking Status: Tobacco use Status Tobacco use date assessed 06/15/25 06/15/25 15:41 Patient Tobacco Use Status Never used Tobacco 06/15/25 15:41 e-Cigarette/Vaping Use Never Used 06/15/25 15:41 PHQ-9: PHQ-9 Score PHQ-9: Total score 0 06/15/25 16:06 Depression Screening Interpretation: Negative Thrive Assessment: Date of Thrive Assessment Date Thrive assessed 10/03/24 06/15/25 15:41 Currently or been in a relationship where the following occur: No concerns reported Const Other: Alert oriented x3, no acute distress noted ambulatory normal gait Nutritional Appearance: average body habitus Orientation/consciousness: patient oriented x3 Neck Other: Thyroid gland nonpalpable Neck: Yes full ROM, Yes no lymphadenopathy and Yes supple Resp Auscultation: clear to auscultation bilaterally Cardio Other: S1-S2 present regular rate and rhythm no murmurs Peripheral pulses: posterior tibial pulses present and dorsalis pedis present Back/Spine/Pelvis Back: No back tenderness Skin General skin exam: no rashes or lesions noted Neuro General: patient oriented x3, gait normal, tone normal, moves all extremities, Normal light touch and pain sensation and no focal motor deficits Extrem General: Yes normal to inspection, Yes full ROM, Yes capillary refill normal, Yes no joint enlargement, Yes no clubbing, cyanosis or edema and Yes no pedal edema Coding Level of Care Code Est Pt Level 4 (03588) Diagnoses Burning sensation of feet R20.8 Assessment & Plan Assessment & Plan (1) Burning sensation of feet: Code(s): R20.8 - Other disturbances of skin sensation Category: Medical Plan: Would comprehensive metabolic panel, CBC with differential, vitamin B12 and folic acid, vitamin B6, magnesium level and vitamin-D. Electromyogram and nerve conduction velocity studies ordered. Advised to try massaging capsaicin cream to affected areas once a day as needed take care not to get in contact with the eye Patient to return to clinic for follow-up after tests are done Orders: Orders Comprehensive Mobile. Panel Fast 06/16/25 E55.9 - Vitamin D deficiency, unspecified, I10 - Essential (primary) hypertension, R20.8 - Other disturbances of skin sensation Complete Blood Count Auto Diff 06/16/25 E55.9 - Vitamin D deficiency, unspecified, I10 - Essential (primary) hypertension, R20.8 - Other disturbances of skin sensation Vitamin B12 and Folate 06/16/25 E55.9 - Vitamin D deficiency, unspecified, I10 - Essential (primary) hypertension, R20.8 - Other disturbances of skin sensation Vitamin B6 06/16/25 E55.9 - Vitamin D deficiency, unspecified, I10 - Essential (primary) hypertension, R20.8 - Other disturbances of skin sensation NE electromyogram (EMG) 06/15/25 R20.8 - Other disturbances of skin sensation NE nerve conduction velocity 06/15/25 R20.8 - Other disturbances of skin sensation Magnesium 06/16/25 E55.9 - Vitamin D deficiency, unspecified, I10 - Essential (primary) hypertension, R20.8 - Other disturbances of skin sensation Vitamin D 25-OH Total 06/16/25 E55.9 - Vitamin D deficiency, unspecified, I10 - Essential (primary) hypertension, R20.8 - Other disturbances of skin sensation
[2025-06-15 15:37] VITALS: BP 144/80; PULSE 94; RESP 16; TEMP 36.7; O2SAT 99; BMI 24.8
== END 2025-06-15 16:05 | disposition home or self-care (01) ==
LOC: HO.HMCC 15:20
PROVIDERS: PCP Internal Medicine; Visit Provider Internal Medicine
DX: R20.8 Other disturbances of skin sensation (principal)

== ENCOUNTER → 2025-06-15 15:19 | Outpatient (BNVA) | payer OTHER, SELFPAY | PROVIDERS: PCP Internal Medicine; Visit Provider Internal Medicine | DX: I10 Essential (primary) hypertension (principal); R20.8 Other disturbances of skin sensation; E55.9 Vitamin D deficiency, unspecified | CPT/HCPCS: 99212 ==

== ENCOUNTER 2025-06-16 10:27 | Outpatient (REF) | payer OTHER, SELFPAY ==
[2025-06-16 13:21] LABS: MANUAL DIFF FLAG NO
[2025-06-16 14:15] LABS: Hematocrit 44.2 % (42.0-52.0); Hemoglobin 14.2 g/dl (14.0-18.0); Imm Gran Abs Auto 0.02 X10*3/uL (0.00-0.03); Imm Gran Pct Auto 0.3 % (0.0-0.4); Lymphocytes Absolute Auto 1.4 X10*3/uL (1.2-4.9); Mean Corpuscular HGB Conc 32.1 g/dl (31.0-36.0); Mean Corpuscular Hemoglobin 30.5 pg (27.0-33.0); Mean Corpuscular Volume 94.8 fL (80.0-98.0); NRBC Abs Auto 0.000 X10*3/uL (0.0-0.012); NRBC Pct Auto 0.0 /100WBC (0.0-0.2); Platelet Count 288 X10*3/uL (160-400); Red Blood Count 4.66 X10*6/uL (4.60-5.80); White Blood Count 6.2 X10*3/uL (4.8-10.8)
[2025-06-16 17:08] LABS: Alanine Aminotransferase 23 U/L (0-40); Albumin Level 4.5 g/dL (3.5-5.0); Alkaline Phosphatase 103 U/L (39-117); Anion Gap 14 (12-20); Aspartate Amino Transferase 24 U/L (5-37); Blood Urea Nitrogen 15 mg/dL (9-16); Calcium 9.4 mg/dL (8.4-10.2); Carbon Dioxide 24 mmol/L (22-29); Chloride 107 mmol/L (96-108); Estimated Glomerular Filt Rate > 60; Magnesium 2.4 mg/dL (1.6-2.6); Potassium 4.3 mmol/L (3.3-5.1); Sodium 141 mmol/L (135-145); Total Protein 8.1 g/dL (6.5-8.0)
[2025-06-16 17:25] LABS: Folate 13.5 ng/mL (> or = 4.0); Vitamin B12 328 pg/mL (200-900)
== END 2025-06-16 10:28 | disposition home or self-care (01) ==
LOC: HO.HMGCLDS 10:27
PROVIDERS: PCP Internal Medicine; Visit Provider Internal Medicine
DX: I10 Essential (primary) hypertension (principal); E55.9 Vitamin D deficiency, unspecified; R20.8 Other disturbances of skin sensation
CPT/HCPCS: 36415; 80053; 82306; 82607; 82746; 83735; 84207; 85025

== ENCOUNTER 2025-07-19 09:38 | Outpatient (REF) | payer OTHER, SELFPAY ==
--- NOTE | 2025-07-19 09:40 | EMG_ITS ---
Chief complaint: Burning of feet Reason for referral: R20.5 other disturbance of skin sensation Referred by: Lanny Rivers MD Procedure done: NCS and EMG of bilateral lower extremities Bilateral tibial and peroneal motor studies were performed with F responses. Tibial H reflexes were obtained. Bilateral superficial peroneal and sural sensory studies were performed and median and lateral mixed plantars sensory studies were performed. EMG examination was performed. Findings: Bilateral superficial peroneal sensory amplitudes were significantly diminished with mild slowing of conduction velocity. Left sural conduction velocity was mildly slow. Otherwise no significant abnormality was noted. 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
== END 2025-07-19 09:39 | disposition home or self-care (01) ==
LOC: HO.NEURO 09:38
PROVIDERS: PCP Internal Medicine; Visit Provider Internal Medicine
DX: R20.8 Other disturbances of skin sensation (principal)
CPT/HCPCS: 95886; 95913

== ENCOUNTER → 2025-07-19 09:40 | Outpatient (BNV) | payer OTHER, SELFPAY | PROVIDERS: PCP Internal Medicine; Visit Provider Psychiatry & Neurology Neurology | DX: R20.8 Other disturbances of skin sensation (principal) | CPT/HCPCS: 95886; 95913 ==